=== PATIENT | female | born 1945 | race Caucasian/White ===

== ENCOUNTER 2017-07-05 11:19 | Outpatient (CLI) | payer OTHER, MEDICARE ==
[2017-07-05 14:41] LABS: ALT (SGPT) 16 U/L (8-55); AST (SGOT) 16 U/L (5-34); Alkaline Phosphatase 105 U/L (40-150); Anion Gap 14 mmol/L (10-20); BUN (Urea Nitrogen) 20 mg/dL (9.8-20.1); Bilirubin, Total 0.5 mg/dL (0.2-1.2); Calc. Creatinine Clearance 0 mL/min (70-130); Calcium 10.1 mg/dL (7.8-10.44); Carbon Dioxide 29 mmol/L (23-31); Chloride 100 mmol/L (98-107); Estimated GFR-MDRD 58; Globulin 3.1 g/dL (2.4-3.5); Protein, Total 7.5 g/dL (6.0-8.3)
== END 2017-07-05 11:20 | disposition home or self-care (01) ==
LOC: LABBT 11:19
PROVIDERS: ATTEND Internal Medicine Cardiovascular Disease
DX: Z01.812 Encounter for preprocedural laboratory examination (principal); R25.2 Cramp and spasm; R09.89 Other specified symptoms and signs involving the circulatory and respiratory systems
CPT/HCPCS: 80053

== ENCOUNTER 2017-07-06 05:59 | Day surgery (SDC) | payer OTHER, MEDICARE ==
[2017-07-05 12:03] VITALS: BMI 39.4
[2017-07-06] MEDS ORDERED: Heparin 1000 UNIT/NS 500ML(OR) 1,000 ML ONE (06:44)
--- NOTE | 2017-07-06 13:58 | DIS ---
INDICATION FOR ADMISSION: She was actually seen as an outpatient to undergo elective distal aortogra m with runoff to lower extremities as she complained of left lower extremity discomfort and pain. Pavel watters underwent an evaluation with ABIs in the office and was found to have severe stenosis of the left c ommon femoral artery. She was advised to undergo a distal aortogram with runoff and possible interve ntion. She was taken to the cardiac slab grinder. She underwent sterile procedure using a right femoral artery approach, #4 introducer sheath was placed in the right femoral artery using a 4-Serbian Contra catheter was advanced to the distal aorta and images indicated distal aortic plaque formation as well as severe left common iliac stenosis with an aneurysmal formation. Her other diagnoses included diabetes, hypertension, and chronic obstructive pulmonary disease. DISCHARGE DIAGNOSES: Diabetes, hypertension, and chronic obstructive pulmonary disease. DISCHARGE MEDICATIONS: Same as her admission medications, said she will hold her metformin for 24 ho urs and a chem-7 will be obtained. Her basic metabolic profile will be obtained prior to resuming is medication. Medicines incude bupropion, enalapril, levothyroxine and Crestor. She was on metformin 500 mg b.i.d. , metoprolol 50 mg daily, hydrochlorothiazide 25 mg a day, albuterol sulfate inhaler or nebulizer, Br eo Ellipta for inhalation, and aspirin 81 mg a day and also Imodium A-D. Her followup will be with me in the office in the next few days to a week where she will need to unde rgo some type of stress test in anticipation for probable aortoiliac bypass surgery or some other int ervention. She has not had a recent stress test that I am aware of. If she is to have one recent, t hen we will postpone that. She will also have a CT Surgery consultation with Dr. Rodrigo Marin and w e will also obtain a CT angiogram of the abdominal aorta, the pelvic area, as well as runoff to lower extremities. HOSPITAL COURSE: This is a very unfortunate 71-year-old female who was seen in the office and has be en complaining of left leg discomfort which was somewhat atypical. She did undergo evaluation by ANDREW s and arterial duplex evaluation and was found to have severe stenosis of the left common femoral art dany and proximal superficial femoral artery. She had significant abnormalities with ANDREW on the left side was 0.72. She complained of some cramping at night, but did not have typical claudication type symptoms, underwent evaluation and was found to have severe stenosis of the left common iliac with a gradient of 50-70 mmHg across the area and also had a poststenotic dilatation of the iliac which appe ar to be an aneurysmal formation. She did tolerate the procedure well without difficulties or compli cations. I have discussed her case with the CT surgeons, and she will need to undergo some type of i ntervention. We will further evaluate the distal aorta little bit closer as she does have significan t amount of plaque in the distal aorta extending from distal to the renal arteries down to the bifurc ation. There were no complications or difficulties encountered during her procedures and she has rem ained stable. Once she has hemostasis obtained and she is up and ambulating, she would be discharged home later aft er about 4 hours. ADDENDUM: This lady did undergo a stress test in July of this year. On 07/01/2017, she underwen t stress testing and was found to have no evidence of ischemia on stress test and she should be a tonya sonable candidate to proceed with a low risk for any acute cardiac events.
[2017-07-06] MEDS ORDERED: Iopamidol 370 76% 100 ML VIAL ONE (17:09)
== END 2017-07-06 12:38 | disposition home or self-care (01) ==
LOC: CCL 05:59
PROVIDERS: ATTEND Internal Medicine Cardiovascular Disease
DX: I70.202 Unspecified atherosclerosis of native arteries of extremities, left leg (principal); I70.0 Atherosclerosis of aorta; Q27.32 Arteriovenous malformation of vessel of lower limb; I10 Essential (primary) hypertension; E11.9 Type 2 diabetes mellitus without complications; J44.9 Chronic obstructive pulmonary disease, unspecified; E03.9 Hypothyroidism, unspecified; E78.5 Hyperlipidemia, unspecified; Z79.4 Long term (current) use of insulin; Z79.82 Long term (current) use of aspirin; Z79.899 Other long term (current) drug therapy
CPT/HCPCS: 36246; 75630; 75710; C1769; J1644

== ENCOUNTER 2017-07-08 08:49 | Outpatient (CLI) | payer OTHER, MEDICARE ==
[2017-07-08] MEDS ORDERED: Iopamidol 370 76% 100 ML VIAL ONE (11:32)
--- NOTE | 2017-07-08 11:37 | CT ---
CT ANGIOGRAM OF ABDOMINAL AORTA BILATERAL LOWER EXTREMITY RUNOFF: Date: 07/08/17 HISTORY: Recent cardiac catheterization demonstrating aneurysm. COMPARISON: None. TECHNIQUE: CT angiogram of the aorta and bilateral lower extremity runoff performed in the axial plane. Sagittal and coronal three-dimensional reformatted images are submitted for interpretation. FINDINGS: ABDOMEN CT: Chronic changes in the lung bases. Heart size is within normal limits. No pericardial effusion. Liver, spleen, pancreas, and adrenal glands have appropriate arterial phase enhancement. Symmetric en hancement of the kidneys. Bilaterally, no obstructive uropathy. Hypodensities in the right renal krissy ex are too small to characterize, but are statistically favored to be cysts. No gastrohepatic or retrocrural lymphadenopathy. There is a nonspecific peripancreatic/periportal lym ph node measuring 2.0 x 1.5 cm. No mesenteric mass, lymphadenopathy, free air, or free fluid. Limited evaluation of the alimentary canal due to lack of oral contrast. No evidence of bowel obstruc tion. Ileocecal junction is normal. Normal caliber appendix. Fecal material in a nondistended, nondil ated colon. Occasional diverticulosis. No evidence of diverticulitis. PELVIC CT: Uterus and adnexal structures are unremarkable. Urinary bladder is unremarkable. No pelvic mass, lymp hadenopathy, free air, or free fluid. There are no lytic or blastic lesions of the osseous structures. Scoliotic curvature with vacuum disc phenomenon is identified. CT ANGIOGRAM: The descending thoracic aorta and abdominal aorta have an overall normal caliber. No periaortic fat s tranding. There is evidence of atherosclerotic disease. The celiac artery origin, superior mesenteric artery origin, left and right renal arteries have appropriate enhancement and luminal diameter. Elaina tary left and right renal arteries. Inferior mesenteric artery is also unremarkable. Aortic bifurcati on is unremarkable. There is no evidence of significant aneurysmal dilatation of either common iliac artery. There is mild tortuosity of the left common iliac artery. Bilateral internal and external pebbles ac arteries are patent. Right lower extremity: Common femoral artery, profunda femoral artery, superficial femoral artery, popliteal artery, and art erial trifurcation have appropriate enhancement and luminal diameter. Three vessels supply the right lower extremity to the level of the ankle/foot. Left lower extremity: Common femoral artery, profunda femoral artery, superficial femoral artery, popliteal artery, and art erial trifurcation have appropriate enhancement and luminal diameter. Three vessel supply to the left ankle/foot. IMPRESSION: 1. No significant peripheral vascular disease. 2. No evidence of significant aneurysm in either iliac artery. There is mild tortuosity of the left common iliac artery. POS: ALICE
== END 2017-07-08 08:50 | disposition home or self-care (01) ==
LOC: CT 08:49
PROVIDERS: ATTEND Internal Medicine Cardiovascular Disease
DX: Z01.818 Encounter for other preprocedural examination (principal); I77.1 Stricture of artery; R25.2 Cramp and spasm; R09.89 Other specified symptoms and signs involving the circulatory and respiratory systems
CPT/HCPCS: 75635

== ENCOUNTER 2018-04-27 08:49 | Outpatient (CLI) | payer OTHER, MEDICARE ==
--- NOTE | 2018-04-27 11:13 | MMO ---
BILATERAL SCREENING MAMMOGRAMS: Date: 04/27/18 HISTORY: Annual screening mammography. This patient's mammogram was interpreted with the assistance of computer-aided detection. COMPARISON: 04/07/17, 03/07/15, 03/01/14, 01/19/13. FINDINGS: Scattered fibroglandular densities are seen in each breast. Stable intramammary lymph nodes are again seen in each breast with a few benign-appearing calcifications seen in each breast. No new dominant mass or suspicious grouping of microcalcifications are seen in either breast. IMPRESSION: BIRADS 2: Benign Finding(s) Routine annual mammographic screening is recommended. POS: ALICE
== END 2018-04-27 08:50 | disposition home or self-care (01) ==
LOC: SCSMAMMO 08:49
PROVIDERS: ATTEND Family Medicine
DX: Z12.31 Encounter for screening mammogram for malignant neoplasm of breast (principal)
CPT/HCPCS: 77067

== ENCOUNTER 2020-01-17 08:31 | Outpatient (CLI) | payer BC, MEDICARE ==
--- NOTE | 2020-01-17 10:14 | MRI ---
MRI BRAIN WITH AND WITHOUT IV CONTRAST: HISTORY: TIA. FINDINGS: Correlation is made with a CT of 12/27/2019. There are multiple foci of T2 prolongation in the periventricular white matter consistent with chroni c small-vessel ischemic disease. The ventricular size is appropriate and the basilar cisterns patent . No restricted diffusion is seen. No evidence of infarct, hemorrhage, mass, midline shift, or abnormal extraaxial fluid collections is seen. No abnormal post contrast enhancement is noted. The visualized paranasal sinuses and mastoid air cells are well aerated. IMPRESSION: Chronic changes. No evidence of acute intracranial process or mass. POS: AH
== END 2020-01-17 08:32 | disposition home or self-care (01) ==
LOC: SCSMRI 08:31
PROVIDERS: ATTEND Family Medicine
DX: G45.9 Transient cerebral ischemic attack, unspecified (principal)
CPT/HCPCS: 70553; 82565

== ENCOUNTER 2020-04-05 17:40 | Inpatient (IN) | payer BC, MEDICARE, OTHER ==
[~2020-04-05 17:40] MED LIST: Iopamidol-370 76% 500 ML 1 ML ONE
[2020-04-05] MEDS ORDERED: Rocuronium Bromide 10 MG/ML (10ML VIAL) ONE ×2 (18:19→18:33)
[2020-04-05] MEDS ORDERED: Succinylcholine Chloride 20 MG/ML 10 ml SYRINGE FS ONE (18:33)
--- NOTE | 2020-04-05 18:36 | CT ---
CT OF CERVICAL SPINE PERFORMED WITHOUT CONTRAST ENHANCEMENT: 04/05/20 HISTORY: Fell with neck pain. Vertebral bodies are normal in height. Moderate degenerative disc narrowing seen along the course of the spine from the C3-4 to the C7-T1 levels. Moderate degenerative facet changes are present. There is mild to moderate right foraminal narrowing at C4-5 with asymmetric facet changes. Bilateral foraminal narrowing which is mild on the left and moderate on the right at C5-6 and some mild to mode rate right sided foraminal narrowing at C6-7. There is no CT evidence of fracture. Small 6 to 7 mm pleural based nodular density seen in the left upper lobe. IMPRESSION: No CT evidence of fracture of the cervical spine. POS: OFF
--- NOTE | 2020-04-05 18:40 | CT ---
CT BRAIN WITHOUT CONTRAST: 04/05/20 HISTORY: Stroke alert. FINDINGS: There is a large acute right hemispheric intra-axial hematoma with surrounding vasogenic edema causin g a leftward midline shift of 6 mm. There is intraventricular hemorrhage. The bony calvarium appears intact. The visualized paranasal sinuses and mastoid air cells are well aerated. IMPRESSION: Acute intracranial hemorrhage with subfalcine herniation. Discussed over the telephone with ER physician, Dr. Brian Bravo at 6:28 p.m. POS: DONTE
--- NOTE | 2020-04-05 18:51 | CT ---
CT OF CHEST AND ABDOMEN AND PELVIS PERFORMED WITH INTRAVENOUS CONTRAST ENHANCEMENT: 04/05/20 HISTORY: Fall with bruising along left side. There are linear parenchymal changes in the left upper lobe in more of a paramediastinal location. Ch anges have more of an appearance of scar within the lingula. There is no pneumothorax identified. There is no evidence of rib fractures. The thoracic aorta is normal in size. No mediastinal hematoma. Coronary calcifications are present. CT OF ABDOMEN PERFORMED WITH CONTRAST ENHANCEMENT: The liver and spleen show no focal abnormalities. Pancreas and gallbladder regions are unremarkable. Right and left adrenal glands are normal. Hypodensity involving the right kidney has higher CT Hounsf ield unit numbers than typically seen for a cyst but I still feel is most likely a cyst. In reviewing a previous 09/03/16 examination a density was present on that study. It measures 15 mm on the current exam and a similar size on the prior study. No obstruction. No significant periaortic or mesenteric a denopathy. No signs for bowel wall injury. CT OF PELVIS PERFORMED WITH CONTRAST ENHANCEMENT: The patient has undergone a tubal ligation. No adenopathy, mass or free fluid. The appendix appears u nremarkable. No evidence of fracture of the bony pelvic ring. CT OF THORACIC SPINE: Marked arthritic change without any acute injury. CT OF THE LUMBAR SPINE: Severe arthritic change also without evidence of acute injury. Bruising is seen along the left side o f the abdomen in the left upper quadrant. IMPRESSION: No evidence of solid organ injury. No acute findings other than bruising along the left side of the a bdomen. Incidental findings as noted above. Findings of this examination and the cervical spine study were telephoned to Dr. Bravo at 1835 hour s. POS: OFF
[2020-04-05] MEDS ORDERED: niCARdipine 20MG In NaCl 20 MG/200 ML BAG ONE (18:54)
[2020-04-05 18:56] LABS: #Lymphocytes 1.3 thou/uL (1.20-3.40); #Monocytes 0.8 thou/uL (0.11-0.59); #Neutrophils 12.6 thou/uL (1.40-6.50); %Basophils 0.1 % (0.0-1.0); %Eosinophils 0.1 % (0.0-10.0); %Monocytes 5.2 % (0.0-10.0); %Neutrophils 85.6 % (42.0-75.0); Hemoglobin 14.7 g/dL (12.0-16.0); Mean Corpuscular HGB CONC 33.6 g/dL (32.0-36.0); Mean Corpuscular Volume 92.2 fL (78.0-98.0); Mean Platelet Volume 8.1 fL (7.4-10.4); Platelet Count 290 thou/uL (130-400); RBC Distribution Width 12.5 % (11.5-14.5); Red Blood Cell (RBC) Count 4.75 mill/uL (4.20-5.40); White Blood Cell (WBC) Count 14.7 thou/uL (4.8-10.8)
[2020-04-05] MEDS ORDERED: Fentanyl 100 MCG/2 ML VIAL ONE (18:56)
[2020-04-05] MEDS ORDERED: fentaNYL Citrate/PF 2,000 MCG in Sodium Chloride 0.9% 60 ML IV SCH (18:59)
[2020-04-05 19:00] LABS: Actual Bicarbonate (HCO3a) 20.9 mEq/L (22-28); Analyzer IN Cardio ER; Base Excess (BEa) -3.5 mEq/L (-2.0 to +3.0); CO2 Tension 36.2 mmHg (35.0-45.0); Calcium, Ionized (arterial) 1.19 mmol/L (1.12-1.30); Carboxyhemoglobin (COHb) 0.8 gm% (0.0-3.0); Hemoglobin (Hb) 15.5 g/dL (12.0-16.0); O2 Tension (PaO2), arterial 106.8 mmHg (> 70.0); Potassium - ABG Lab 3.46 mmol/L (3.70-5.30); pH, Arterial 7.38 (7.35-7.45)
[2020-04-05 19:03] LABS: PTT 29.2 sec (22.9-36.1)
[2020-04-05 19:09] LABS: ALT (SGPT) 15 U/L (8-55); AST (SGOT) 34 U/L (5-34); Albumin 4.2 g/dL (3.4-4.8); Alkaline Phosphatase 86 U/L (40-110); Anion Gap 18 mmol/L (10-20); BUN (Urea Nitrogen) 16 mg/dL (9.8-20.1); Bilirubin, Total 0.9 mg/dL (0.2-1.2); Calc. Creatinine Clearance 0 mL/min (70-130); Calcium 9.4 mg/dL (7.8-10.44); Carbon Dioxide 22 mmol/L (23-31); Chloride 102 mmol/L (98-107); Estimated GFR-MDRD 66; Globulin 2.7 g/dL (2.4-3.5); Glucose 184 mg/dL (83-110); Magnesium 1.7 mg/dL (1.6-2.6); Potassium 3.5 mmol/L (3.5-5.1); Protein, Total 6.9 g/dL (6.0-8.3); Sodium 138 mmol/L (136-145)
--- NOTE | 2020-04-05 19:27 | RAD ---
PORTABLE CHEST ONE VIEW: 04/05/20 at 6:57 p.m. HISTORY: Respiratory failure. FINDINGS/IMPRESSION: Comparison made with exam of 12/27/19. There is an endotracheal tube with tip about 2.5 cm above the level of the zeinab. A nasogastric tube is seen which can be traced into the stomach with tip excluded from the film. The heart size is prom inent but stable. The aorta is tortuous. No lobar consolidation, pneumothoraces, or large effusions a re seen. There is scarring in the left lung base. There is scoliosis of the spine. POS: MZA
--- NOTE | 2020-04-05 19:28 | RAD ---
PORTABLE CHEST ONE VIEW: 04/04/20 at 7:05 p.m. HISTORY: Reposition of ET tube. FINDINGS/IMPRESSION: There has been interval repositioning of the endotracheal tube which is now just below the level of t he clavicular heads. The remainder of the exam is otherwise stable since earlier exam of 6:57 p.m. fr om the same date. POS: DONTE
[2020-04-05] MEDS ORDERED: Ondansetron PF 4 MG/2 ML Vial IVP PRN (19:30)
[2020-04-05 19:50] LABS: Bacteria/HPF None Seen HPF (None Seen); Bilirubin Negative (Negative); Blood, Urine 3+ (Negative); Clarity Clear (Clear); Glucose, Urine (Dipstick) Normal (Negative); Ketone, Urine Negative (Negative); Leukocyte Negative Leu/uL (Negative); Nitrite Negative (Negative); Protein, Urine (Dipstick) 100 mg/dL (Neg-Trace); RBC/HPF 0-3 HPF (0-3); Specific Gravity, Urine 1.035 (1.002-1.036); Squamous Epithelial 0-3 HPF (0-3); Urobilinogen Normal mg/dL (Less than 2); WBC/HPF 0-3 HPF (0-3)
[2020-04-05] MEDS ORDERED: Piperacillin/Tazobactam 4.5 GM VIAL ONE (20:56)
[2020-04-05] MEDS ORDERED: Vancomycin 1 GM/200 ML BAG ONE (20:56)
[2020-04-05] MEDS ORDERED: Acetaminophen 650 MG Suppository ONE (21:02)
--- NOTE | 2020-04-05 21:16 | PDOC.EVN ---
Event Note - Event Note Event Note: [id number] consult
[2020-04-05] MEDS ORDERED: Fentanyl BOLUS 250 ML IVPB PRN (22:26)
[2020-04-05] MEDS ORDERED: Propofol BOLUS 1,000 MG/100 ML VIAL IV PRN (22:26)
[2020-04-05] MEDS ORDERED: DISCONTINUE PREVIOUS NARCOTIC PAIN MEDICATIONS AND BENZODIAZEPINES FS SCH (22:26)
[2020-04-05] MEDS ORDERED: Lorazepam 2 MG/ML VIAL SLOW IVP PRN (22:26)
[2020-04-05] MEDS: Sodium Chloride 0.9% 1,000 ML IV SCH (23:35)
--- NOTE | 2020-04-06 02:06 | CON ---
DATE OF CONSULTATION: 04/05/2020 REASON FOR CONSULTATION: Medical management in a patient with intracranial bleed. REQUESTING SERVICE: Neurosurgery. CHIEF COMPLAINT: Unresponsiveness. HISTORY OF PRESENT ILLNESS: Ms. Pate is a 74-year-old female, with unknown past medical history/possible cardiac history, was brought to the emergency room after she was found on the floor, unresponsive after ?fall between the bed and the end of the table, end of the table fell on the patient, patient bruised the left abdomen. Patient was only responsive to painful stimuli, Narcan was given. Workup in the emergency room, patient was intubated. Patient was found not moving her left side of the body, CT of the brain showed acute intracranial hemorrhage with subfalcine herniation, patient is being admitted to Neurologic Surgical service. No further history can be obtained at this time. PAST MEDICAL HISTORY: Possible cardiac history, unable to verify. PAST SURGICAL HISTORY: Unknown. FAMILY HISTORY: Unknown. HOME MEDICATIONS: Unknown. ALLERGIES: UNKNOWN. SOCIAL HISTORY: Unknown. REVIEW OF SYSTEMS: Unable to obtain as patient is currently intubated and sedated. PHYSICAL EXAMINATION: GENERAL: Patient is intubated and sedated. VITAL SIGNS: On presentation, blood pressure 203/125, started on Cardene drip. Then, the blood pressure dropped to systolic 100. Cardene drip was off. Pulse is 91, temperature 100.9, and respiratory rate is 20. HEAD AND NECK: Normocephalic. NECK: Supple. CHEST: Fair bilateral air entry. HEART: S1, S2. Regular. ABDOMEN: Soft. Bowel sounds present. NEUROLOGIC: Intubated and sedated. Unable to assess. PSYCH: Intubated and sedated. Unable to assess. EXTREMITIES: No clubbing or cyanosis. LABORATORIES: CT of the brain as mentioned above in history of present illness. Troponin is elevated at 3.4. ASSESSMENT: 1. Acute intracranial bleed. 2. Acute respiratory failure. 3. Elevated troponin. Patient has a possible history of cardiac disease. 4. Unresponsiveness. PLAN: 1. Patient is being admitted to the ICU. 2. Continue full ventilator support. 3. Monitor blood pressure. Titrate to systolic less than 140. 4. Station Usher consulted for critical care management. 5. Further management as per Neurosurgery. 6. Reconcile home medications. 7. DVT prophylaxis if appropriate. 8. Overall prognosis is poor. Patient's condition is critical. Thank you for consulting us. Job ID: [id number]
--- NOTE | 2020-04-06 03:39 | CON ---
DATE OF CONSULTATION: CHIEF COMPLAINT: Fall. HISTORY OF PRESENT ILLNESS: Ms. Pate is a 74-year-old female, who fell between the bed and end table about an hour ago by her . She has a history of a TIA back in December with no weakness. Currently taking aspirin 325 mg and no blood thinners. Brain CT shows a right acute intracranial hemorrhage with left midline shift of [address] showed no evidence of fractures. GCS prior to intubation was 10. REVIEW OF SYSTEMS: Intubated PAST MEDICAL HISTORY: Hypertension, Diabetes PAST SURGICAL HISTORY: Unable to obtain. SOCIAL HISTORY: Former smoker. MEDICATIONS: Wellbutrin 150 mg, Enalapril 20 mg, Levothyroxine 50 mcg, Crestor 10 mg, Metformin 500 mg, Metoprol 50 mg, Aspirin 325 mg, Akbar and Albuterol I, Hydralazine 25 mg, Vitamin D 5000 IU ALLERGIES: NO KNOWN ALLERGIES (unconfirmed) FAMILY HISTORY: Father , Heart Dz. Mother, , Heart Dz PHYSICAL EXAMINATION: VITAL SIGNS: Blood pressure 118/74, pulse 100, respiratory rate 20, and temperature 100. NEUROLOGIC: Pupils equal, round, and reactive to light, left-sided ido- neglect. GCS 11: Spontaneous eye opening is 4, Verbal intubated (NT) 1, Motor: obeys commands 6. LABORATORY DATA: White blood cells 14.7, platelet count 290. Sodium 138. PT 13, INR 1.0, and PTT 29.2. IMAGING: CT of the brain, acute intracranial hemorrhage with a left midline shift of 6 mm. PLAN: Stop aspirin. Support airway. Keep SBP less than 140. Start Keppra. Repeat CT of the brain this tomorrow morning. If scan shows improvement or no change, we will transfer care to Medicine Service. Supportive care. No intracranial surgery at this time. We will have her follow up in 2 to 3 weeks in our clinic. (50 minutes) Job ID: [id number] MTDD
[2020-04-06 06:38] LABS: INR-International Normal Ratio 1.1; Prothrombin Time 14.1 sec (12.0-14.7)
[2020-04-06 06:39] LABS: PTT 29.4 sec (22.9-36.1)
[2020-04-06 06:50] LABS: Anion Gap 16 mmol/L (10-20); BUN (Urea Nitrogen) 21 mg/dL (9.8-20.1); Band 5 % (5-11); Calc. Creatinine Clearance 79 mL/min (70-130); Calcium 8.9 mg/dL (7.8-10.44); Carbon Dioxide 19 mmol/L (23-31); Chloride 107 mmol/L (98-107); Eosinophils 1 % (0-10); Estimated GFR-MDRD 54; Glucose 178 mg/dL (83-110); Hemoglobin 13.2 g/dL (12.0-16.0); Lymphocytes 15 % (21-51); MDiff Complete? YES; Mean Corpuscular Hemoglobin 30.3 pg (27.0-31.0); Mean Platelet Volume 7.9 fL (7.4-10.4); Monocytes 9 % (0-10); Neutrophil 70 % (42-75); Platelet Count 288 thou/uL (130-400); Platelet Morphology Comment Appears Adequate; Potassium 3.4 mmol/L (3.5-5.1); RBC Distribution Width 12.7 % (11.5-14.5); RBC Morphology Normal; Red Blood Cell (RBC) Count 4.34 mill/uL (4.20-5.40); Sodium 139 mmol/L (136-145); White Blood Cell (WBC) Count 12.5 thou/uL (4.8-10.8)
--- NOTE | 2020-04-06 07:40 | PRG ---
DATE OF SERVICE: 04/06/2020 : I personally interviewed and examined the patient, agreed with documentation of Seferino Dinh PA-C dated 04/05/2020. Briefly, Mercedes Pate is a 74-year-old woman found down by her family yesterday and brought to the emergency department. CT examination of the brain revealed intracerebral hemorrhage, which looks lobar. There is some mass effect from the hemorrhage. In the emergency department, with a GCS of 10 to 11, she was intubated. She has been placed in the ICU overnight and I am seeing her this morning. A repeat CT examination of the brain was done. Blood pressures have been well controlled in the 90s to 100s. The maximum temperature I see recorded overnight is 99.5 degrees Fahrenheit. On examination, Ms. Pate is intubated. She opens her eyes as I entered the room even before I ask her to do so. She follows commands quite well on the right side of her body. On the left side, she can appreciate deep pressure. There is some withdrawal in the left leg. There is no motion of the left arm. She nods her head appropriately to some questions. Her hemoglobin is 14.7. The sodium was 138 yesterday, but has not been obtained this morning. pCO2 was [address] examination of the brain and compared today scan to yesterday scan. When I measure it, I see that the midline shift is slightly reduced. I do not believe the hemorrhage volume is any different today from yesterday. There may be some hemorrhage that has circulated in the CSF. There is a tiny amount in the sulcus on the contralateral hemisphere and some intraventricular hemorrhage, but there is no ventriculomegaly. I do not believe, Ms. Pate had any increased bleeding. In fact, by the time she arrived at the emergency department there was already vasogenic edema around the clot. This suggests that she was down for a day or more before being found. This edema does not happen acutely and therefore, I think we are at least 48, if not 72 hours or beyond since the hemorrhage happened. As such, I do not think neurosurgical intervention will be warranted. I think we can manage her medically from here. This spontaneous intracerebral hemorrhage, per management protocols , can be transferred to medical service as primary, but we will continue to follow this case due to the size of the hemorrhage. Ms. Pate will benefit eventually from speech, occupational, physical therapy and inpatient rehabilitation. It may come to the point in the next few days that the family will have to decide on trach and PEG, but hopefully she can be extubated. Careful management of her IV fluid to avoid hyponatremia, and a constant and vigilant watch for this will help avoid any worsening of the edema. Job ID: [id number] MTDD
[2020-04-06 08:01] LABS: Actual Bicarbonate (HCO3a) 20.9 mEq/L (22-28); Base Excess (BEa) -1.7 mEq/L (-2.0 to +3.0); CO2 Tension 29.7 mmHg (35.0-45.0); Calcium, Ionized (arterial) 1.13 mmol/L (1.12-1.30); Carboxyhemoglobin (COHb) 0.5 gm% (0.0-3.0); Hemoglobin (Hb) 13.8 g/dL (12.0-16.0); O2 Tension (PaO2), arterial 89.7 mmHg (> 70.0); Potassium - ABG Lab 3.29 mmol/L (3.70-5.30); pH, Arterial 7.47 (7.35-7.45)
[2020-04-06 08:02] LABS: ALV-art Gradient 194.025 (0-20); Puncture Site RR
[2020-04-06] MEDS: Sodium Chloride 0.9% 1,000 ML IV SCH ×2 (09:27→14:31)
--- NOTE | 2020-04-06 09:56 | CT ---
PRELIMINARY REPORT/[facility]/EMERGENCY AFTER HOURS PROCEDURE Receipt of this report by the clinical staff was confirmed with Ely Barrera RN by Nilam Wiley on Apr 06, 2020 04:49:00 CDT. Addendum electronically signed by Suzette Wiley on April 06, 2020 4:49:10 AM CDT EXAM: CT Head Without Intravenous Contrast. CLINICAL HISTORY: F/u IVH TECHNIQUE: Axial computed tomography images of the head/brain without intravenous contrast. COMPARISON: CT\LA\SR - CT BRAIN WO CON - 04/05/2020 06:12 PM CDT FINDINGS: BRAIN: There is a large intraparenchymal hematoma in the right frontal region measuring 5 x 0.7 x 4.1 x 7 cm with a large area of vasogenic edema, enlarged compared to prior examination. There is midline shift to the left side for about 7 mm, increased since the last examination. There i s bilateral intraventricular hemorrhage, increased since the last examination. Subarachnoid hemorrhag e in the right frontal and the left parietal region, new since the last examination. VENTRICLES: No hydrocephalus. ORBITS: The orbits are unremarkable. SINUSES AND MASTOIDS: The paranasal sinuses and mastoid air cells are clear. SOFT TISSUES: No significant facial or scalp soft tissue swelling evident. No radiopaque foreign body is seen. BONES: No acute skull fracture. IMPRESSION: 1. There is a large intraparenchymal hematoma in the right frontal region measuring 5 x 0.7 x 4.1 x 7 cm with a large area of vasogenic edema, enlarged compared to prior examination. 2. There is midline shift to the left side for about 7 mm, increased since the last examination. 3. There is bilateral intraventricular hemorrhage, increased since the last examination. 4. Subarachnoid hemorrhage in the right frontal and the left parietal region, new since the last exam ination. ELECTRONICALLY SIGNED BY: Floyd Celis MD Apr 06, 2020 4:32:41 AM CDT FINAL REPORT CT BRAIN WITHOUT CONTRAST: I agree with the preliminary report given by Dr. Floyd Celis of [facility]. POS: OFF
[2020-04-06 11:46] LABS: SARS-CoV-2 MS2 Positive; SARS-CoV-2 N Gene Negative; SARS-CoV-2 S Gene Negative; SARS-CoV-2 by NAA Not Detected (NotDetected); SARS-CoV-2 orf1ab Negative
--- NOTE | 2020-04-06 14:04 | PDOC.HOSPP ---
- Subjective Encounter Date: 04/06/20 Encounter Time: 13:05 Subjective: f/u for intracerebral hemorrhage of R frontal region with midline shift/ intraventricular hemorrhage. [facility] and moving R hand/LE per nursing. - Objective Vital Signs & Weight: Vital Signs (12 hours) Temp Pulse Resp BP Pulse Ox 04/06/20 13:07 105 H 116/64 04/06/20 12:00 99.6 F 23 H 04/06/20 11:05 101 H 134/55 L 04/06/20 10:00 100.0 F H 20 04/06/20 08:00 99.1 F 20 96 04/06/20 07:43 98 103/67 04/06/20 06:00 20 04/06/20 04:00 99.5 F 20 04/06/20 02:23 88 84/54 L Weight Weight 219 lb 5.759 oz Most Recent Monitor Data Heart Rate from ECG 105 NIBP 116/64 NIBP BP-Mean 81 Respiration from ECG 20 SpO2 96 I&O: 04/05/20 04/06/20 04/07/20 06:59 06:59 06:59 Intake Total 450 110 Output Total 1210 200 Balance -760 -90 Result Diagrams: 04/06/20 06:24 04/06/20 06:24 Additional Labs: Microbiology 04/05/20 19:38 Urine ac catheter Urine Culture - Preliminary NO GROWTH AT 12 HOURS 04/05/20 18:34 Venous blood - Right Hand Blood Culture - Preliminary Specimen has been received and culture in progress. No Growth to date. 04/05/20 18:33 Venous blood - Left Hand Blood Culture - Preliminary Specimen has been received and culture in progress. No Growth to date. Laboratory Tests 10/23/19 04/05/20 04/05/20 11:07 18:34 18:34 WBC Neutrophils % Neutrophils % (Manual) Potassium 3.5 Troponin I 3.403 H* TSH 3rd Generation 0.2347 L COVID-19 PCR 04/05/20 04/05/20 04/05/20 18:34 18:34 19:54 WBC 14.7 H Neutrophils % 85.6 H Neutrophils % (Manual) Potassium Troponin I TSH 3rd Generation 0.1456 L COVID-19 PCR Not Detected 04/06/20 06:24 WBC Neutrophils % Neutrophils % (Manual) 70 Potassium Troponin I TSH 3rd Generation COVID-19 PCR Radiology Reviewed by me: Yes (CT brain - R frontal intracerebral hemorrhage/ midline shift/intravent hemor) EKG Reviewed by me: Yes (Tele - SR) Hospitalist ROS - Medication Medications: Active Medications Generic Name Dose Route Start Last Admin Trade Name Jarrellq PRN Reason Stop Dose Admin Sodium Chloride 1,000 mls @ 75 mls/hr 04/05/20 19:30 04/06/20 09:27 Normal Saline 0.9% IV Not Given .[id number] ANUSHKA Levetiracetam 500 mg/ Device 100 mls @ 200 mls/hr 04/05/20 21:00 04/06/20 09: 27 IVPB 100 mls BID ANUSHKA Administration - Exam General - other findings: sed[facility] Eye: PERRL, anicteric sclera ENT: normocephalic atraumatic, no oropharyngeal lesions ENT - other findings: ETT in place Neck: supple, symmetric, no JVD, no thyromegaly Heart: RRR, no murmur, no gallops, no rubs, normal peripheral pulses Heart - other findings: S1, S2 Respiratory: CTAB, no wheezes, no rales, no ronchi Gastrointestinal: soft, non-tender, non-distended, normal bowel sounds, no palpable masses Extremities: no cyanosis, no clubbing, no edema Skin: normal turgor, no lesions Neurological - other findings: moves R hand/BLE's, non-verbal, opens eyes briefly Psychiatric: somnolent, lethargic Hosp A/P (1) Intracerebral hemorrhage Code(s): I61.9 - NONTRAUMATIC INTRACEREBRAL HEMORRHAGE, UNSPECIFIED Status: Acute Qualifiers: Intracerebral hemorrhage etiology: nontraumatic Laterality: right Plan: continue fluid/med mgmt per Neurosurgery recommendations, serial Na+ monitoring (2) Acute respiratory failure with hypoxia Code(s): J96.01 - ACUTE RESPIRATORY FAILURE WITH HYPOXIA Status: Acute Plan: Continue [facility] ventilation, serial ABG's, PCXR, ? weaning vs need for trach (3) Acute metabolic encephalopathy Code(s): G93.41 - METABOLIC ENCEPHALOPATHY Status: Acute Plan: Secondary to #1 (4) NSTEMI (non-ST elevated myocardial infarction) Code(s): I21.4 - NON-ST ELEVATION (NSTEMI) MYOCARDIAL INFARCTION Status: Acute Plan: Likely due to #1 and demand state, no acute intervention currently, Cardiology consulted, no anticoagulation given ICH (5) CKD (chronic kidney disease), stage III Code(s): N18.3 - CHRONIC KIDNEY DISEASE, STAGE 3 (MODERATE) Status: Chronic Plan: Avoid nephrotoxic meds and limit contrast exposure - Plan mental health social worker, respiratory therapy, DVT proph w/SCDs Continue critical support Mech ventilation and ? ability to wean Continue IVF NS BP mgmt General stroke protocol AM lab: BMP, CBC, PT/PTT
[2020-04-06] MEDS: Acetaminophen 325 MG TAB PO PRN (14:16)
--- NOTE | 2020-04-06 15:36 | CON ---
DATE OF CONSULTATION: 04/06/2020 HISTORY OF PRESENT ILLNESS: Ms. Pate is a 74-year-old female. She was apparently found down at home. She is found to have a brain bleed with ventricular extension. She subsequently has been admitted. History is otherwise unknown. PAST MEDICAL HISTORY: History of hypertension, diabetes. SOCIAL HISTORY: Former smoker. MEDICATIONS: Prior to admission include; 1. Wellbutrin. 2. Enalapril. 3. Synthroid. 4. Crestor. 5. Metformin. 6. Metoprolol. 7. Aspirin. 8. She has inhalers. 9. Hydralazine. ALLERGIES: SHE HAS NO REPORTED DRUG ALLERGIES. FAMILY HISTORY: Positive for vascular disease. REVIEW OF SYSTEMS: Not obtainable. PHYSICAL EXAMINATION: VITAL SIGNS: Blood pressure 131/72, heart rate is 96, FiO2 is at 40%, respiratory rate is 20. HEAD AND NECK: Remarkable for equal pupils. Sclerae are anicteric. She has no cervical lymph nodes. LUNGS: Clear. HEART: Regular rhythm. ABDOMEN: Soft. EXTREMITIES: Without edema. LABORATORY DATA: CT of her head showed a large intra-axial right hemispheric hematoma with a leftward shift and subfalcine herniation. ASSESSMENT AND PLAN: No surgery is planned. Her prognosis is quite poor. She is a DNR apparently per discussion with the . Critical care time 30 min. Job ID: [id number] [facility]OSPITALDavid
--- NOTE | 2020-04-06 17:04 | CON ---
DATE OF CONSULTATION: 04/06/2020 INDICATIONS FOR CONSULTATION: An unfortunate 74-year-old female who suffered a large intracerebral hemorrhage. We were asked to see her due to some elevation of the cardiac enzymes with possible [id number]-[id number] elevation myocardial infarction or due to the acute neurological event, which could cause the cardiac enzymes increased. Her EKG does not show any acute changes. She does have some nonspecific ST-segment changes, but no ST-segment elevation. She does have some nonspecific ST-segment changes, which are rather diffuse, which again may be neurologic in nature. At this time, she is on the ventilator. She is somewhat, I believe, arousable. She had a repeat CT scan this morning, which showed that the hemorrhage had increased slightly. She has been seen by Dr. Kyle from Neurology. She actually had been found down at home by the family. According to Dr. Kyle's note, he does not think there has been any significant increase in the bleeding. There have been some edema around the area. I did see this lady back in, I believe, 2016, back in July, at which time she had undergone a distal aortogram, was looking at the lower extremities. It was felt that she had some peripheral vascular disease. I do not think she has had any intervention since that time. It did not appear to be critical on repeat evaluation. She does have a history of hypertension and diabetes and also COPD. ALLERGIES: NONE. MEDICATIONS: Prior to admission, include: 1. Aspirin. 2. Albuterol inhaler. 3. Crestor. 4. Metoprolol. 5. Enalapril. 6. Bupropion. 7. Levothyroxine. 8. Breo Ellipta inhaler. 9. Metformin. 10. She also was on, I believe, hrpn-mzh-yjzzqip p.r.n. medications, such as vinegar, vitamin D, fiber gummy. 11. She also was taking hydralazine 25 mg 3 times a day. REVIEW OF SYSTEMS: Not obtainable. Please refer to the notes dictated in the chart. Someone has spoken to the family. There is no family available at this time. PHYSICAL EXAMINATION: GENERAL: An elderly female. VITAL SIGNS: Blood pressure is 116/64, heart rate is 106 and shows a sinus rhythm, O2 saturation is 96%, and respirations are 20. HEENT: Shows the head to be normocephalic and atraumatic. Carotid pulses are present. I cannot hear any significant bruits. CHEST: Actually is clear to auscultation. There were no rales, rhonchi, or wheezing noted. CARDIOVASCULAR: A mild tachycardia, but regular rate and rhythm. I do not hear any gross murmurs. ABDOMEN: Obesity with positive bowel sounds. EXTREMITIES: No clubbing, cyanosis, or edema. She has no withdrawal of pain on the left side. She does have some withdrawal pain on the right side in the lower extremity. SKIN: Warm and dry at this time. LABORATORY DATA: WBC of 12.5, hemoglobin 13.2, hematocrit 39.9, and platelet count was 288,000. Her sodium is 139, potassium 3.4, BUN was 21 with a creatinine 1.01, and blood sugar was 178. Her cardiac enzymes yesterday evening, this is the only one that had been obtained, showed a CPK MB of 39 with a troponin-I of 3.4. EKG shows a sinus rhythm with nonspecific ST-segment changes. CT scan of the brain repeated this morning, results indicate a large intraparenchymal hematoma in the right frontal region with a midline shift to the left of about 7 mm. She did have bilateral intraventricular hemorrhage and some subarachnoid hemorrhage in the right frontal and left parietal regions. IMPRESSION: 1. An elderly female who has had no previous history of coronary artery disease that I can determine, but does have risk factors, who has now developed an intracerebral hemorrhage. There is a very little from a cardiac standpoint that we can perform at this time. She is not a candidate for any type of anticoagulation obviously. I will continue to monitor her very carefully, watch her blood pressure and heart rate, can certainly keep the heart rate under relatively good control with beta blockers perhaps if she is able to tolerate this from a blood pressure standpoint. She is on labetalol as needed, but we could certainly start a low dose of metoprolol to keep the heart rate and blood pressure under reasonable control. Her blood pressure is not elevated at this time. We will be more than happy to continue to follow the patient with you, but from a cardiac standpoint at this time, there is very little that we can offer. We certainly could obtain perhaps an echocardiogram for evaluation of left ventricular systolic function as this may give some insight into her future prognosis. Should she have severe cardiomyopathy or we have to treat medically if she has appreciable left ventricular hypertrophy. 2. History of some peripheral vascular disease, but is not severe. She has been doing relatively stable. 3. History of diabetes. This will be dealt with by the primary care service. 4. Hypercholesterolemia, I would continue her on statin medications if she is able to take medications through the NG tube. Most likely, she will need to undergo a percutaneous endoscopic gastrostomy and trach in the near future depending on the wishes of the family and how the patient progresses. Job ID: [id number]
[2020-04-06] MEDS: Propofol 1,000 MG/100 ML VIAL IV PRN (17:23)
[2020-04-06] MEDS: Labetalol HCl 100 MG/20 ML VIAL SLOW IVP PRN ×2 (21:04→23:38)
[2020-04-07] MEDS: Labetalol HCl 100 MG/20 ML VIAL SLOW IVP PRN ×5 (01:53→23:11)
[2020-04-07 03:37] LABS: Band 8 % (5-11); Hemoglobin 12.6 g/dL (12.0-16.0); Lymphocytes 13 % (21-51); MDiff Complete? YES; Mean Corpuscular HGB CONC 32.2 g/dL (32.0-36.0); Mean Corpuscular Hemoglobin 30.1 pg (27.0-31.0); Mean Corpuscular Volume 93.4 fL (78.0-98.0); Mean Platelet Volume 7.9 fL (7.4-10.4); Monocytes 1 % (0-10); Neutrophil 77 % (42-75); Platelet Count 211 thou/uL (130-400); Platelet Morphology Comment Appears Adequate; RBC Distribution Width 12.6 % (11.5-14.5); Red Blood Cell (RBC) Count 4.19 mill/uL (4.20-5.40); White Blood Cell (WBC) Count 11.4 thou/uL (4.8-10.8)
[2020-04-07 03:39] LABS: Anion Gap 16 mmol/L (10-20); BUN (Urea Nitrogen) 19 mg/dL (9.8-20.1); Calc. Creatinine Clearance 96 mL/min (70-130); Calcium 8.5 mg/dL (7.8-10.44); Carbon Dioxide 21 mmol/L (23-31); Chloride 108 mmol/L (98-107); Estimated GFR-MDRD 68; Glucose 166 mg/dL (83-110); Potassium 3.3 mmol/L (3.5-5.1); Sodium 142 mmol/L (136-145)
[2020-04-07] MEDS: Sodium Chloride 0.9% 1,000 ML IV SCH ×2 (04:13→15:27)
[2020-04-07 04:22] LABS: INR-International Normal Ratio 1.1; PTT 32.5 sec (22.9-36.1); Prothrombin Time 14.6 sec (12.0-14.7)
--- NOTE | 2020-04-07 07:46 | PRG ---
DATE OF SERVICE: 04/07/2020 I saw Mrecedes Pate in the ICU this morning. She is starting her 3rd hospital day with us. She came in after being found down and had an intracerebral hemorrhage noted on her admission CT scan with vasogenic edema already present before her admission, suggesting an older hemorrhage, then the day of admission. Since being here, she is continued to follow commands. Overnight yesterday, propofol was started to ease her the increased tolerance of the ventilatory support. Yesterday, her maximum temperature was 101.3 degrees Fahrenheit. Blood pressures have been between the 120s and 140s. On examination with propofol running, Ms. Pate is a little bit slower to follow commands than yesterday, but still moves her right hand and right foot to command. She withdraws the left foot. I am not getting her to move the left arm. Sodium is 142, which is good. Her white blood cell count is 11.4 and her hemoglobin is 12.6. Ms. Pate would benefit from physical, speech, and occupational therapy as well as inpatient rehabilitation. We will continue to follow. We will hope that her sodium stays in a good range. I do not see any change between the admission CT scan and a followup CT scan with regard to the size of the parenchymal component of the hemorrhage. Some of the intraventricular hemorrhage present on the first scan disseminated through the CSF space, but I do not suspect any bleeding between the two scans. Eventually, the family will help us decide whether trach and PEG are in her best interest. Hopefully, she is alert enough in the coming day or two to not require endotracheal intubation. Job ID: [id number]
[2020-04-07] MEDS ORDERED: Electrolyte Replacement Protoc 1 EACH EACH FS SCH (08:03)
[2020-04-07] MEDS ORDERED: Sodium Chloride 0.9% (PF) 10 ML VIAL FS PRN (08:09)
[2020-04-07] MEDS ORDERED: Potassium Chloride 40 MEQ in Sodium Chloride 0.9% 250 ML 250 ML IVPB SCH (08:15)
--- NOTE | 2020-04-07 08:18 | PRG ---
DATE OF SERVICE: 04/07/2020 35 minutes of critical care time. SUBJECTIVE: Ms. Pate is a 74-year-old female, who is currently in the hospital for treatment of a large intraventricular hemorrhage. I have known her for probably 15 years in managing her COPD through the office. I can get her to follow some simple commands on the right side, I can get her to do anything on the left, and I can get her to open her eyes spontaneously. OBJECTIVE: VITAL SIGNS: Temperature is 100.9 with a T-max of 101.3 yesterday, pulse 102, blood pressure 162/82. 24-hour intake 1854, output 1126. HEENT: Otherwise, unremarkable. NECK: No JVD. LUNGS: Coarse breath sounds. CARDIOVASCULAR: S1 and S2, regular. ABDOMEN: Soft, obese, nontender, and nondistended. EXTREMITIES: No clubbing, cyanosis, or edema. LABORATORY DATA: White blood cell count 11.4, hematocrit 39.1, and platelet count 211. INR 1.1, PTT 32.5. ABG has not been done today, but looked okay yesterday. Sodium 142, potassium 3.3, chloride 108, CO2 of 21, BUN 19, creatinine 0.8, glucose 166. ASSESSMENT: 1. Large intraventricular hemorrhage. 2. Underlying chronic obstructive pulmonary disease. 3. Hypertension. 4. Elevated cardiac enzymes. PLAN: We will need to meet with family to see what their preferences will be going forward. I will get her potassium replaced. We will start her on enteral tube feeds. Job ID: [id number]
[2020-04-07] MEDS: Pantoprazole 40 MG VIAL IVP SCH (09:26)
[2020-04-07] MEDS ORDERED: Metoprolol Tartrate 50 MG TAB PER TUBE SCH (09:30)
[2020-04-07 09:57] LABS: Troponin I 1.029 ng/mL (< 0.028)
[2020-04-07] MEDS: hydrALAZINE 20 MG/ML VIAL SLOW IVP PRN (10:34)
[2020-04-07] MEDS: Propofol 1,000 MG/100 ML VIAL IV PRN (15:22)
--- NOTE | 2020-04-07 17:16 | PDOC.HOSPP ---
- Subjective Encounter Date: 04/07/20 Encounter Time: 16:50 Subjective: f/u for intracerebral hemorrhage and resp failure [facility] BP labile per nursing. Moving her RU/LE on command. Receiving TF's with Vital HP per NGT. - Objective Vital Signs & Weight: Vital Signs (12 hours) Temp Pulse Pulse Pulse Resp BP BP 04/07/20 16:00 100.2 F H 20 04/07/20 14:32 78 04/07/20 14:00 21 H 04/07/20 12:39 73 20 04/07/20 12:21 74 75 145/58 H 04/07/20 12:00 99.9 F H 20 04/07/20 11:47 78 153/65 H 04/07/20 10:34 71 154/69 H 04/07/20 10:07 71 04/07/20 10:00 19 04/07/20 09:23 90 90 166/86 H 04/07/20 08:00 22 H 04/07/20 07:47 81 04/07/20 07:35 100.9 F H 04/07/20 06:03 80 143/74 H 04/07/20 06:00 20 BP Pulse Ox Pulse Ox Pulse Ox 04/07/20 16:00 04/07/20 14:32 04/07/20 14:00 04/07/20 12:39 95 04/07/20 12:21 144/59 H 95 95 04/07/20 12:00 04/07/20 11:47 04/07/20 10:34 04/07/20 10:07 04/07/20 10:00 04/07/20 09:23 170/78 H 96 96 04/07/20 08:00 04/07/20 07:47 04/07/20 07:35 95 04/07/20 06:03 04/07/20 06:00 Weight Admit Weight 224 lb Weight 224 lb 13.944 oz Most Recent Monitor Data Heart Rate from ECG 76 NIBP 132/61 NIBP BP-Mean 84 Respiration from ECG 20 SpO2 96 I&O: 04/06/20 04/07/20 04/08/20 06:59 06:59 06:59 Intake Total 450 1854.1 570 Output Total 1210 1126 495 Balance -760 728.1 75 Result Diagrams: 04/07/20 03:14 04/07/20 03:14 Additional Labs: Microbiology 04/05/20 19:38 Urine ac catheter Urine Culture - Final NO GROWTH AT 36 HOURS 04/05/20 19:38 Urine ac catheter Urine Culture - Preliminary NO GROWTH AT 12 HOURS 04/05/20 18:34 Venous blood - Right Hand Blood Culture - Preliminary Specimen has been received and culture in progress. No Growth to date. 04/05/20 18:34 Venous blood - Right Hand Blood Culture - Preliminary NO GROWTH AT 48 HOURS 04/05/20 18:33 Venous blood - Left Hand Blood Culture - Preliminary Specimen has been received and culture in progress. No Growth to date. 04/05/20 18:33 Venous blood - Left Hand Blood Culture - Preliminary NO GROWTH AT 48 HOURS Laboratory Tests 10/23/19 04/05/20 04/05/20 11:07 18:34 18:34 WBC Neutrophils % Neutrophils % (Manual) Potassium 3.5 Troponin I 3.403 H* TSH 3rd Generation 0.2347 L COVID-19 PCR 04/05/20 04/05/20 04/05/20 18:34 18:34 19:54 WBC 14.7 H Neutrophils % 85.6 H Neutrophils % (Manual) Potassium Troponin I TSH 3rd Generation 0.1456 L COVID-19 PCR Not Detected 04/06/20 04/06/20 04/07/20 06:24 06:24 03:14 WBC 12.5 H Neutrophils % Neutrophils % (Manual) 70 77 H Potassium 3.4 L Troponin I TSH 3rd Generation COVID-19 PCR 04/07/20 09:16 WBC Neutrophils % Neutrophils % (Manual) Potassium Troponin I 1.029 H* TSH 3rd Generation COVID-19 PCR EKG Reviewed by me: Yes (Tele - SR) Hospitalist ROS - Medication Medications: Active Medications Generic Name Dose Route Start Last Admin Trade Name Freq PRN Reason Stop Dose Admin Acetaminophen 650 mg 04/05/20 19:30 04/06/20 14:16 Tylenol PO 650 mg Q6H PRN Administration Fever > 101 or Headache Albuterol/Ipratropium 3 ml 04/07/20 13:00 04/07/20 12:39 Duoneb NEB 3 ml [id number] ANUSHKA Administration Hydralazine HCl 5 mg 04/05/20 19:35 04/07/20 10:34 Apresoline SLOW IVP 5 mg Q4H PRN Administration SBP >140 Sodium Chloride 1,000 mls @ 75 mls/hr 04/05/20 19:30 04/07/20 15:27 Normal Saline 0.9% IV 1,000 mls .[id number] ANUSHKA Administration Levetiracetam 500 mg/ Device 100 mls @ 200 mls/hr 04/05/20 21:00 04/07/20 09: 47 IVPB 100 mls BID ANUSHKA Administration Labetalol HCl 10 mg 04/05/20 19:30 04/07/20 11:47 Normodyne SLOW IVP 10 mg Q2H PRN Administration SBP > 140 Pantoprazole Sodium 40 mg 04/07/20 09:00 04/07/20 09:26 Protonix IVP 40 mg DAILY ANUSHKA Administration Propofol 1,000 mg 04/05/20 22:26 04/07/20 15:22 Diprivan IV 05/05/20 22:26 1,000 mg INF PRN Administration TO ACHIEVE GOAL RASS Protocol - Exam General - other findings: somnolent on mech ventilation Eye: PERRL Eye - other findings: eyes deviate to R ENT: normocephalic atraumatic, no oropharyngeal lesions Neck: supple, symmetric, no JVD, no thyromegaly, no lymphadenopathy Heart: RRR, no gallops, no rubs, normal peripheral pulses Heart - other findings: S1, S2 Respiratory: CTAB, no wheezes, no rales, no ronchi, normal chest expansion Gastrointestinal: soft, non-tender, non-distended, normal bowel sounds, no palpable masses Gastrointestinal - other findings: obese Extremities: no cyanosis, no clubbing Skin: normal turgor Neurological - other findings: L hemiparesis Musculoskeletal: generalized weakness Psychiatric: oriented to person, somnolent, lethargic Hosp A/P (1) Intracerebral hemorrhage Code(s): I61.9 - NONTRAUMATIC INTRACEREBRAL HEMORRHAGE, UNSPECIFIED Status: Acute Qualifiers: Intracerebral hemorrhage etiology: nontraumatic Laterality: right Plan: Continue general stroke protocol, await clinical improvement, no surgical intervention recommended (2) Acute respiratory failure with hypoxia Code(s): J96.01 - ACUTE RESPIRATORY FAILURE WITH HYPOXIA Status: Acute Plan: Continue [facility] ventilation, not weanable currently (3) Acute metabolic encephalopathy Code(s): G93.41 - METABOLIC ENCEPHALOPATHY Status: Acute (4) NSTEMI (non-ST elevated myocardial infarction) Code(s): I21.4 - NON-ST ELEVATION (NSTEMI) MYOCARDIAL INFARCTION Status: Acute Plan: Supportive mgmt, likely related to #1 (5) CKD (chronic kidney disease), stage III Code(s): N18.3 - CHRONIC KIDNEY DISEASE, STAGE 3 (MODERATE) Status: Chronic - Plan clinical social work aide, respiratory therapy, DVT proph w/SCDs Continue critical support Continue mech ventilation, not weanable Nutritional support with Vital HP Continue IVF NS BP mgmt General stroke protocol Consider Palliative care AM lab: BMP, CBC, ABG PCXR in am
[2020-04-07] MEDS: Metoprolol Tartrate 50 MG TAB PER TUBE SCH (20:36)
[2020-04-08] MEDS: Propofol 1,000 MG/100 ML VIAL IV PRN ×4 (00:24→20:39)
[2020-04-08] MEDS: Labetalol HCl 100 MG/20 ML VIAL SLOW IVP PRN (03:06)
[2020-04-08 04:12] LABS: #Eosinphils 0.1 thou/uL (0.0-0.7); #Monocytes 0.6 thou/uL (0.11-0.59); #Neutrophils 6.6 thou/uL (1.40-6.50); %Basophils 0.4 % (0.0-1.0); %Eosinophils 0.8 % (0.0-10.0); %Lymphocytes 21.8 % (21.0-51.0); %Monocytes 5.9 % (0.0-10.0); Hemoglobin 10.9 g/dL (12.0-16.0); Mean Corpuscular HGB CONC 32.9 g/dL (32.0-36.0); Mean Corpuscular Hemoglobin 30.8 pg (27.0-31.0); Mean Corpuscular Volume 93.6 fL (78.0-98.0); Mean Platelet Volume 7.6 fL (7.4-10.4); Platelet Count 228 thou/uL (130-400); RBC Distribution Width 12.5 % (11.5-14.5); Red Blood Cell (RBC) Count 3.54 mill/uL (4.20-5.40); White Blood Cell (WBC) Count 9.3 thou/uL (4.8-10.8)
[2020-04-08 04:31] LABS: Anion Gap 14 mmol/L (10-20); BUN (Urea Nitrogen) 18 mg/dL (9.8-20.1); Calc. Creatinine Clearance 102 mL/min (70-130); Calcium 8.3 mg/dL (7.8-10.44); Carbon Dioxide 22 mmol/L (23-31); Chloride 109 mmol/L (98-107); Estimated GFR-MDRD 71; Glucose 142 mg/dL (83-110); Potassium 3.3 mmol/L (3.5-5.1); Sodium 142 mmol/L (136-145)
[2020-04-08] MEDS: Sodium Chloride 0.9% 1,000 ML IV SCH (05:06)
[2020-04-08] MEDS ORDERED: Potassium Chloride 40 MEQ in Sodium Chloride 0.9% 250 ML 250 ML IVPB SCH (05:30)
[2020-04-08 06:57] LABS: Actual Bicarbonate (HCO3a) 23.8 mEq/L (22-28); Base Excess (BEa) -0.1 mEq/L (-2.0 to +3.0); CO2 Tension 35.8 mmHg (35.0-45.0); Calcium, Ionized (arterial) 1.15 mmol/L (1.12-1.30); Carboxyhemoglobin (COHb) 0.3 gm% (0.0-3.0); Hemoglobin (Hb) 11.4 g/dL (12.0-16.0); O2 Tension (PaO2), arterial 103.8 mmHg (> 70.0); Potassium - ABG Lab 3.51 mmol/L (3.70-5.30); pH, Arterial 7.44 (7.35-7.45)
--- NOTE | 2020-04-08 06:58 | PRG ---
DATE OF SERVICE: I saw Mercedes Pate in our ICU room this morning. She is starting her fourth hospital day with us. Overnight, nursing does not report any change in her examination and no events. Among the electronically recorded vital signs, the highest temperature I see is 100.9 degrees Fahrenheit at 7:30 a.m. yesterday. Since then, the fever curve is coming down. Blood pressures have been between the 120s and the 140s. On examination, Ms. Pate still has a small amount of propofol running. However , she follows commands on the right side quite easily. She nods her head to questions. She withdraws the left lower extremity. The left upper extremity extends with enough stimulation. This morning's white blood cell count is 9.3, hemoglobin is 10.9. Her sodium is 142. Total IV fluid and tube feeds going in currently is 118 mL now, a bit high. Ms. Pate's neurological examination is stable. So long as we avoid exacerbating vasogenic edema, I think she has a good chance of getting through this without any surgical intervention. We will continue to follow. I suggest decreasing maintenance fluids as the tube feeds and as the electrolyte replacements are initiated. (15min) Job ID: [id number] MTDD
[2020-04-08 07:03] LABS: Puncture Site RRA
--- NOTE | 2020-04-08 07:53 | RAD ---
XR Chest 1 View Portable History: Pneumonia Comparison: Radiograph April 05, 2020 Findings: Small effusions. Anterior tube tip just below the level of clavicles in good position. Ente ema tube tip below diaphragm although out of field of view. Atelectasis throughout both lower lobes. No pneumothorax. No acute osseous abnormality. Impression: Similar appearance of the chest without significant interval improvement.
--- NOTE | 2020-04-08 08:57 | PRG ---
DATE OF SERVICE: 04/08/2020 35 minutes of critical care time. SUBJECTIVE: The patient remains intubated on mechanical ventilation. She will follow commands on the right side but not on the left. OBJECTIVE: VITAL SIGNS: Temperature 99.4, pulse 64, blood pressure 146/63, and O2 saturation 99%.HEENT: Unremarkable. NECK: No adenopathy or JVD. LUNGS: Clear. CARDIAC: S1, S2. Regular. ABDOMEN: Soft. EXTREMITIES: No edema. LABORATORY DATA: Sodium 142, potassium 3.3, chloride 109, CO2 of 22, BUN 18, creatinine 0.8, and glucose 142. White blood cell count 9.3, hematocrit 33.1, and platelet count 228. PH 7.44, pCO2 of 35, pO2 of 103. Chest x-ray, no acute findings. ASSESSMENT: 1. Status post large right-sided brain bleed with intraventricular hemorrhage. 2. Underlying chronic obstructive pulmonary disease. 3. Respiratory failure, requiring mechanical ventilation. 4. Hypertension. 5. Elevated cardiac enzymes. PLAN: 1. Continuing supportive care. 2. Since she is on propofol and tube feeds, I will go ahead and stop her routine maintenance IV fluids. 3. Continue Protonix for GI prophylaxis. 4. SCDs for DVT prophylaxis. 5. We will speak with . Job ID: [id number]
[2020-04-08] MEDS: Pantoprazole 40 MG VIAL IVP SCH ×2 (09:26→10:31)
[2020-04-08] MEDS: Metoprolol Tartrate 50 MG TAB PER TUBE SCH ×2 (09:46→20:39)
[2020-04-08] MEDS: hydrALAZINE 20 MG/ML VIAL SLOW IVP PRN (10:36)
--- NOTE | 2020-04-08 14:35 | EKG ---
Test Reason : Blood Pressure : / mmHG Vent. Rate : 097 BPM Atrial Rate : 097 BPM P-R Int : 160 ms QRS Dur : 074 ms QT Int : 354 ms P-R-T Axes : 056 -15 041 degrees QTc Int : 449 ms Normal sinus rhythm with sinus arrhythmia Possible Left atrial enlargement Nonspecific ST abnormality Abnormal ECG Confirmed by BORIS JENSEN DO ([id number]), video tape editor KORINA MELENDEZ ([id number]) on 04/08/2020 2:34:24 PM Referred By: Confirmed By:BORIS JENSEN DO
--- NOTE | 2020-04-08 14:35 | EKG ---
Test Reason : Blood Pressure : / mmHG Vent. Rate : 092 BPM Atrial Rate : 092 BPM P-R Int : 164 ms QRS Dur : 078 ms QT Int : 386 ms P-R-T Axes : 063 -07 053 degrees QTc Int : 477 ms Normal sinus rhythm with sinus arrhythmia Possible Left atrial enlargement Nonspecific ST abnormality Abnormal ECG Confirmed by BORIS JENSEN DO ([id number]), news videotape editor KORINA MELENDEZ ([id number]) on 04/08/2020 2:34:24 PM Referred By: Confirmed By:BORIS JENSEN DO
--- NOTE | 2020-04-08 15:43 | PDOC.HOSPP ---
- Subjective Encounter Date: 04/08/20 Encounter Time: 15:30 Subjective: f[facility] for [facility] Keppra [facility]. Responding to voice and moving RU/LE per nursing. - Objective Vital Signs & Weight: Vital Signs (12 hours) Temp Pulse Pulse Pulse Resp BP BP 04/08/20 14:30 74 04/08/20 14:00 19 04/08/20 12:41 80 04/08/20 12:00 99.1 F 20 04/08/20 10:44 73 04/08/20 10:36 74 163/81 H 04/08/20 10:00 19 04/08/20 08:48 64 77 150/68 H 04/08/20 08:00 98.9 F 22 H 04/08/20 06:49 69 04/08/20 06:00 16 04/08/20 04:00 99.4 F 16 BP Pulse Ox Pulse Ox Pulse Ox 04/08/20 14:30 04/08/20 14:00 04/08/20 12:41 04/08/20 12:00 04/08/20 10:44 04/08/20 10:36 04/08/20 10:00 04/08/20 08:48 150/68 H 98 98 04/08/20 08:00 98 04/08/20 06:49 04/08/20 06:00 04/08/20 04:00 Weight Admit Weight 224 lb Weight 224 lb 13.944 oz Most Recent Monitor Data Heart Rate from ECG 67 NIBP 121/45 NIBP BP-Mean 70 Respiration from ECG 20 SpO2 97 I&O: 04/07/20 04/08/20 04/09/20 06:59 06:59 06:59 Intake Total 1854.1 3289 334 Output Total 1126 1130 725 Balance 728.1 2159 -391 Result Diagrams: 04/08/20 04:03 04/08/20 04:03 Additional Labs: Microbiology 04/05/20 19:38 Urine ac catheter Urine Culture - Final NO GROWTH AT 36 HOURS 04/05/20 19:38 Urine ac catheter Urine Culture - Preliminary NO GROWTH AT 12 HOURS 04/05/20 18:34 Venous blood - Right Hand Blood Culture - Preliminary Specimen has been received and culture in progress. No Growth to date. 04/05/20 18:34 Venous blood - Right Hand Blood Culture - Preliminary NO GROWTH AT 48 HOURS 04/05/20 18:33 Venous blood - Left Hand Blood Culture - Preliminary Specimen has been received and culture in progress. No Growth to date. 04/05/20 18:33 Venous blood - Left Hand Blood Culture - Preliminary NO GROWTH AT 48 HOURS Laboratory Tests 10/23/19 04/05/20 04/05/20 11:07 18:34 18:34 WBC Neutrophils % Neutrophils % (Manual) Potassium 3.5 Troponin I 3.403 H* TSH 3rd Generation 0.2347 L COVID-19 PCR 04/05/20 04/05/20 04/05/20 18:34 18:34 19:54 WBC 14.7 H Neutrophils % 85.6 H Neutrophils % (Manual) Potassium Troponin I TSH 3rd Generation 0.1456 L COVID-19 PCR Not Detected 04/06/20 04/06/20 04/07/20 06:24 06:24 03:14 WBC 12.5 H Neutrophils % Neutrophils % (Manual) 70 77 H Potassium 3.4 L Troponin I TSH 3rd Generation COVID-19 PCR 04/07/20 09:16 WBC Neutrophils % Neutrophils % (Manual) Potassium Troponin I 1.029 H* TSH 3rd Generation COVID-19 PCR Radiology Reviewed by me: Yes (PCXR - bilat lower lobe atelectasis, lines/tubes in place) EKG Reviewed by me: Yes (Tele - SR) Hospitalist ROS - Medication Medications: Active Medications Generic Name Dose Route Start Last Admin Trade Name Freq PRN Reason Stop Dose Admin Acetaminophen 650 mg 04/05/20 19:30 04/06/20 14:16 Tylenol PO 650 mg Q6H PRN Administration Fever > 101 or Headache Albuterol/Ipratropium 3 ml 04/07/20 13:00 04/08/20 12:41 Duoneb NEB 3 ml [id number] ANUSHKA Administration Hydralazine HCl 5 mg 04/05/20 19:35 04/08/20 10:36 Apresoline SLOW IVP 5 mg Q4H PRN Administration SBP >140 Levetiracetam 500 mg/ Device 100 mls @ 200 mls/hr 04/05/20 21:00 04/08/20 09: 46 IVPB 100 mls BID ANUSHKA Administration Labetalol HCl 10 mg 04/05/20 19:30 04/08/20 03:06 Normodyne SLOW IVP 10 mg Q2H PRN Administration SBP > 140 Metoprolol Tartrate 50 mg 04/07/20 21:00 04/08/20 09:46 Lopressor PER TUBE 50 mg BID ANUSHKA Administration Pantoprazole Sodium 40 mg 04/07/20 09:00 04/08/20 10:31 Protonix IVP 40 mg DAILY ANUSHKA Administration Propofol 1,000 mg 04/05/20 22:26 04/08/20 14:43 Diprivan IV 05/05/20 22:26 1,000 mg INF PRN Administration TO ACHIEVE GOAL RASS Protocol - Exam General - other findings: nods to questions Eye: PERRL, anicteric sclera ENT: normocephalic atraumatic, no oropharyngeal lesions ENT - other findings: ETT/NGT in place Neck: supple, symmetric, no JVD, no thyromegaly Heart: RRR, no gallops, no rubs, normal peripheral pulses Heart - other findings: S1, S2 Respiratory: CTAB, no wheezes, no rales, no ronchi Respiratory - other findings: diminished in bases Gastrointestinal: soft, non-tender, non-distended, normal bowel sounds, no palpable masses Extremities: no cyanosis, no clubbing, no edema Skin: normal turgor, no lesions Neurological: no new deficit Neurological - other findings: L hemiparesis, moves RU/LE Musculoskeletal: generalized weakness Psychiatric: somnolent, lethargic Hosp A/P (1) Intracerebral hemorrhage Code(s): I61.9 - NONTRAUMATIC INTRACEREBRAL HEMORRHAGE, UNSPECIFIED Status: Acute Qualifiers: Intracerebral hemorrhage etiology: nontraumatic Laterality: right Plan: Continue supportive mgmt, no acute surgical intervention planned currently (2) Acute respiratory failure with hypoxia Code(s): J96.01 - ACUTE RESPIRATORY FAILURE WITH HYPOXIA Status: Acute Plan: Continue [facility] ventilation, wean as clinically indicated (3) Acute metabolic encephalopathy Code(s): G93.41 - METABOLIC ENCEPHALOPATHY Status: Acute (4) NSTEMI (non-ST elevated myocardial infarction) Code(s): I21.4 - NON-ST ELEVATION (NSTEMI) MYOCARDIAL INFARCTION Status: Acute Plan: Medical mgmt, no anticoagulation given ICH (5) CKD (chronic kidney disease), stage III Code(s): N18.3 - CHRONIC KIDNEY DISEASE, STAGE 3 (MODERATE) Status: Chronic - Plan PT/OT, social worker masters, speech therapy, respiratory therapy, DVT proph w/SCDs Continue critical support Continue mech ventilation, not weanable currently Nutritional support with Vital HP Saline lock IVF's BP mgmt General stroke protocol Consider Palliative care AM lab: BMP, CBC, ABG PCXR in am
[2020-04-09] MEDS: Propofol 1,000 MG/100 ML VIAL IV PRN ×5 (01:42→23:20)
[2020-04-09 04:56] LABS: #Eosinphils 0.2 thou/uL (0.0-0.7); #Lymphocytes 1.8 thou/uL (1.20-3.40); #Monocytes 0.6 thou/uL (0.11-0.59); #Neutrophils 6.3 thou/uL (1.40-6.50); %Basophils 0.5 % (0.0-1.0); %Eosinophils 2.5 % (0.0-10.0); %Lymphocytes 20.4 % (21.0-51.0); %Monocytes 6.1 % (0.0-10.0); %Neutrophils 70.5 % (42.0-75.0); Hemoglobin 10.5 g/dL (12.0-16.0); Mean Corpuscular HGB CONC 32.2 g/dL (32.0-36.0); Mean Corpuscular Hemoglobin 30.4 pg (27.0-31.0); Mean Corpuscular Volume 94.6 fL (78.0-98.0); Mean Platelet Volume 7.5 fL (7.4-10.4); Platelet Count 237 thou/uL (130-400); RBC Distribution Width 12.3 % (11.5-14.5); Red Blood Cell (RBC) Count 3.44 mill/uL (4.20-5.40)
[2020-04-09 05:19] LABS: Anion Gap 13 mmol/L (10-20); BUN (Urea Nitrogen) 18 mg/dL (9.8-20.1); Calc. Creatinine Clearance 106 mL/min (70-130); Calcium 8.4 mg/dL (7.8-10.44); Carbon Dioxide 25 mmol/L (23-31); Chloride 106 mmol/L (98-107); Estimated GFR-MDRD 74; Glucose 147 mg/dL (83-110); Potassium 3.4 mmol/L (3.5-5.1); Sodium 141 mmol/L (136-145)
[2020-04-09] MEDS: Potassium Chloride 20 MEQ in Premix Bag 1 BAG IVPB SCH ×2 (06:41→08:45)
[2020-04-09] MEDS: hydrALAZINE 20 MG/ML VIAL SLOW IVP PRN ×2 (06:41→18:05)
[2020-04-09 07:00] LABS: Actual Bicarbonate (HCO3a) 26.1 mEq/L (22-28); Base Excess (BEa) 2.6 mEq/L (-2.0 to +3.0); CO2 Tension 36.3 mmHg (35.0-45.0); Calcium, Ionized (arterial) 1.15 mmol/L (1.12-1.30); Hemoglobin (Hb) 11.5 g/dL (12.0-16.0); O2 Tension (PaO2), arterial 83.4 mmHg (> 70.0); pH, Arterial 7.47 (7.35-7.45)
[2020-04-09 07:03] LABS: ALV-art Gradient 192.075 (0-20); Puncture Site RRA
--- NOTE | 2020-04-09 07:19 | PRG ---
DATE OF SERVICE: 04/09/2020 I saw Mercedes Pate in her ICU room this morning, remains on propofol and on the ventilator. There are intermittent neuro checks. Nursing reports that she follows commands on the right, but not the left, which has been stable since her admission. Overnight, the highest temperature I saw recorded was 100.7 degrees Fahrenheit. Blood pressures have been in the 140s to 160s, slightly higher than they have been over the past few days. On examination, Ms. Pate is not opening her eyes for me, but she does lift up her thumb and she shows me two fingers. She wiggles her toes. All of this is on the right side. On the left, she withdraws the left lower extremity. With the left upper extremity, all that she can do is to extend. This has not changed. Sodium is 141. White blood cell count is 9.0. We get into the point that Ms. Pate has needed ventilatory support for long enough that a trach and PEG should be considered. Discussion should be held with the family and a consult placed for trach and PEG placement. Once those are in, we can be in the slow process of weaning ventilatory support more safely and give her nutritional support as well. (15min) Job ID: [id number] MTDD
--- NOTE | 2020-04-09 07:29 | RAD ---
LEFT WRIST 3 VIEWS: Date: 04/09/2020 INDICATION: Fall with swelling. COMPARISON: None. FINDINGS: There is diffuse soft tissue swelling of the left forearm and left wrist. There is scattered osteoart hrosis of the radiocarpal joint. There is mild ulnar minus configuration at the DRUJ. Carpal alignmen t appears within normal limits. IMPRESSION: No acute osseous abnormality. POS: BH
--- NOTE | 2020-04-09 07:30 | RAD ---
LEFT HUMERUS 2 VIEWS: Date: 04/09/2020 INDICATION: History of fall with swelling. COMPARISON: None. IMPRESSION: There is moderate AC joint osteoarthrosis. No acute osseous abnormality is evident. There is diffuse soft tissue swelling of the left upper extremity. There is an IV cannula within the soft tissues of t he left mid arm. POS: BH
--- NOTE | 2020-04-09 07:31 | RAD ---
LEFT ELBOW 4 VIEWS: Date: 04/09/2020 INDICATION: Fall with swelling. COMPARISON: None. IMPRESSION: Radiocapitellar alignment appears within normal limits. No displaced fracture is noted. No joint caps ular distention is evident. There is soft tissue swelling of the left upper arm and proximal left for earm. There is an IV cannula within the soft tissues of the medial left arm. POS: BH
--- NOTE | 2020-04-09 07:46 | RAD ---
Exam: Chest one view HISTORY:Pneumonia Comparison: 04/08/2020 FINDINGS: Cardiac silhouette:Cardiomegaly. Aorta: Atherosclerosis Pulmonary vessels: Normal Costophrenic angles: Clear LUNGS: Scattered interstitial and alveolar opacities, unchanged. Lines and tubes: Stable endotracheal and nasogastric tube Pneumothorax: None Osseous abnormalities: None IMPRESSION: Stable multi lobar pneumonia.
[2020-04-09] MEDS: Metoprolol Tartrate 50 MG TAB PER TUBE SCH ×2 (08:23→21:59)
--- NOTE | 2020-04-09 08:47 | PRG ---
DATE OF SERVICE: 04/09/2020 35 minutes critical care time. SUBJECTIVE: The patient remains intubated, on mechanical ventilation. She will follow commands with her right side when her sedation is lessened. OBJECTIVE: VITAL SIGNS: Her temperature is 100.5 with T-max of 100.7, pulse 91, blood pressure 166/78, O2 saturation 95%. 24-four intake 2820, output 1835. HEENT: Unremarkable. NECK: No JVD. LUNGS: Clear anteriorly. CARDIAC: S1, S2. Regular. ABDOMEN: Soft. EXTREMITIES: No edema except in her left arm where she has some edema in the palmar aspect of her hand extending up toward her elbow. LABORATORY DATA: White blood cell count 9, hematocrit 32.6, and platelet count 237. PH 7.47, pCO2 of 36, pO2 of 83 on SIMV rate 16, tidal volume 500, PEEP 5, pressure 10, FiO2 45%. Sodium 141, potassium 3.4, chloride 106, CO2 of 25, BUN 18, creatinine 0.7, glucose 147. Chest x-ray shows no significant change. ASSESSMENT: 1. Status post large intraparenchymal bleed. 2. Underlying chronic obstructive pulmonary disease. 3. Respiratory failure requiring mechanical ventilation. 4. Hypertension. 5. Elevated cardiac enzymes. PLAN: 1. Discussed with her on the phone about possibly pursuing tracheostomy and PEG tube placement. The family basically needs some time to talk this over and think about it. 2. I have decreased her ventilator rate some. 3. We will try to elevate the arm and see if we can alleviate some of the edema. 4. Continue to monitor labs, blood gas, etc. 5. Protonix for GI prophylaxis, SCDs for DVT prophylaxis. Job ID: [id number]
[2020-04-09] MEDS: Morphine 2 MG/ML VIAL SLOW IVP PRN ×2 (10:16→18:19)
[2020-04-09] MEDS: Acetaminophen 325 MG TAB PO PRN ×2 (10:17→17:54)
[2020-04-09] MEDS: Pantoprazole 40 MG VIAL IVP SCH (10:18)
--- NOTE | 2020-04-09 15:40 | PDOC.PALCO ---
Palliative Care Consult - Consult Details Requesting Physician: Dr Naranjo Reason for Consult: goals of care, family support Family Members Present: Patient and daughter Stephanie - Pertinent HPI 74 year old female who was brought to the hospital after her found her on the floor Tuesday evening at aprox 5 pm, beside her bed and had vomited, lethargy/altered mental status. [place]ing the patient the night before around 6:45. He called 911 and patient was transported by EMS to [facility] emergency room for further evaluation. GCS 9, oriented to self on arrival and withdraws to pain, word salad, left sided hemineglect with left leg paralysis. No recent illness, falls, was at baseline last time she was seen by spouse. TIA in recent months. Evaluation in the emergency room identified Interventricular hemorrhage with subfalcine herniation , NSTEMI, suspected left lower lobe pneumonia suspected secondary to aspiration. Intubated, and admitted to CCU for higher level of care. - Pertinent PMH HTN, COPD, Anxiety - Social History Alcohol Use: none Drug Use History: none Living Situation: - Medications MAR Reviewed: Yes - Allergies Allergies/Adverse Reactions: Allergies Allergy/AdvReac Type Severity Reaction Status Date / Time No Known Allergies Allergy Verified 04/05/20 23:17 - Subjective Opens eyes to voice, intubated with mechanical ventilation. - ROS Non Response: due to endotracheal tube, due to mental status - Objective Vital Signs: Vital Signs - Most Recent Temp Pulse Resp BP Pulse Ox 99.1 F 64 17 164/71 H 96 04/09/20 12:00 04/09/20 12:57 04/09/20 12:00 04/09/20 08:48 04/09/20 08:48 Palliative Performance Scale: 20 - Physical Exam Constitutional: ill appearing HEENT: moist MMs, sclera anicteric Respiratory: no rhonchi, no wheezing Deviation from normal: Mechanical ventilation Cardiovascular: RRR Gastrointestinal: non-tender, positive bowel sounds Deviation from normal: Obese Genitourinary: ac catheter Musculoskeletal: edema present Neurology: hemiplegia Skin: bruising, fragile Deviation from normal: Oriented to self, lethargic - Problem List (1) Palliative care encounter Code(s): Z51.5 - ENCOUNTER FOR PALLIATIVE CARE Current Visit: Yes Status: Acute (2) Acute metabolic encephalopathy Code(s): G93.41 - METABOLIC ENCEPHALOPATHY Current Visit: Yes Status: Acute (3) Acute respiratory failure with hypoxia Code(s): J96.01 - ACUTE RESPIRATORY FAILURE WITH HYPOXIA Current Visit: Yes Status: Acute (4) Intracerebral hemorrhage Code(s): I61.9 - NONTRAUMATIC INTRACEREBRAL HEMORRHAGE, UNSPECIFIED Current Visit: Yes Status: Acute Qualifiers: Intracerebral hemorrhage etiology: nontraumatic Laterality: right (5) NSTEMI (non-ST elevated myocardial infarction) Code(s): I21.4 - NON-ST ELEVATION (NSTEMI) MYOCARDIAL INFARCTION Current Visit : Yes Status: Acute (6) CKD (chronic kidney disease), stage III Code(s): N18.3 - CHRONIC KIDNEY DISEASE, STAGE 3 (MODERATE) Current Visit: Yes Status: Chronic - Plan/Recommendations Plan: Life review with patient and daughter Stephanie. They state she enjoyed social media specifically Facebook and [employer]. Was opinionated and always " Had her hair done and makeup on". Relayed she was anxious, and could worry. Four Grandchildren, they called her Ashleigh and her Svetlana. She has been 40 years and was raised and continued to live in [place]. Relayed she has Directive to Physician and will obtain copy for the hospital. Mr Rio and Stephanie shared that she would not desire to live if there was poor meaningful recovery. They revisited Trach/Peg that had been presented and we discussed that today no decisions needed to be made. The daughter Diana will come see her mom tomorrow. Reviewed current status, reinforcing information relayed by physicians involved in her care. Discussed as decisions are made that they are not their wishes as a family, but to reflect what is stated in Directives and that they are just Lyndas voice relaying her desires. Communicated with Dr Naranjo, Dr Kyle, Dr Meraz Emotional Support, therapeutic listening Will place Spiritual Care consult Please also refer to Palliative Care notes in note section. [75] minutes spent on this encounter with >50% of the time in counseling and coordination of care. Thank you for this very appropriate consult.
--- NOTE | 2020-04-09 21:46 | CT ---
CT BRAIN NONCONTRAST: DATE: 04/09/2020 9:17 PM HISTORY: 74-year-old female with intracranial hemorrhage with recent neurological changes. Dr. Booker discussed the findings by telephone with neurosurgery DAYANARA Candelaria at 9:42 PM 04/09/2020 COMPARISON: 04/06/2020 FINDINGS: Again noted is the large right upper frontal and upper temporal intra-axial hematoma. It measures brittani roximately 5.8 x 4.7 cm, and has a moderately large amount of surrounding vasogenic edema. It causes mass effect, effacing sulci diffusely, especially in the right cerebral hemisphere, distorting and compressing the right lateral ventricle, and causing right to left midline shift of the septum pellucidum a distance of 9 mm,, slightly greater than the 7 mm on the prior CT. The perimesencephalic , ambient cistern is partially effaced. There is no tonsillar herniation. The right lateral ventricle appears more compressed and narrowed than on the previous CT. The body, trigone, and occipi kyree horn, along with temporal horn, of left lateral ventricle, remain mildly dilated. Intraventricular hematomas are again noted. This has decreased on the right and slightly decreased on the left. Small amount of subarachnoid hemorrhage in the left parietal sulci are minimally less than before. IMPRESSION: 1) large right frontal intra-axial hematoma with surrounding vasogenic edema, mass effect, and subfal cine herniation. 2) the mass effect, including subfalcine herniation is slightly worse than before
[2020-04-09] MEDS ORDERED: Dexamethasone 10 MG/ML VIAL SLOW IVP SCH (22:10)
[2020-04-09] MEDS ORDERED: Mannitol 12.5 GM/50 ML SLOW IVP SCH (22:15)
[2020-04-10 04:17] LABS: #Basophils 0.1 thou/uL (0.0-0.2); #Lymphocytes 0.6 thou/uL (1.20-3.40); #Monocytes 0.2 thou/uL (0.11-0.59); #Neutrophils 8.2 thou/uL (1.40-6.50); %Basophils 1.2 % (0.0-1.0); %Eosinophils 0.2 % (0.0-10.0); %Lymphocytes 6.3 % (21.0-51.0); %Monocytes 1.7 % (0.0-10.0); %Neutrophils 90.6 % (42.0-75.0); Hemoglobin 11.8 g/dL (12.0-16.0); Mean Corpuscular HGB CONC 32.8 g/dL (32.0-36.0); Mean Corpuscular Hemoglobin 30.7 pg (27.0-31.0); Mean Corpuscular Volume 93.5 fL (78.0-98.0); Mean Platelet Volume 8.4 fL (7.4-10.4); Platelet Count 238 thou/uL (130-400); RBC Distribution Width 12.4 % (11.5-14.5); Red Blood Cell (RBC) Count 3.84 mill/uL (4.20-5.40); White Blood Cell (WBC) Count 9.1 thou/uL (4.8-10.8)
[2020-04-10] MEDS: hydrALAZINE 20 MG/ML VIAL SLOW IVP PRN ×2 (04:34→22:14)
[2020-04-10 04:37] LABS: Anion Gap 15 mmol/L (10-20); BUN (Urea Nitrogen) 19 mg/dL (9.8-20.1); Calc. Creatinine Clearance 111 mL/min (70-130); Calcium 8.8 mg/dL (7.8-10.44); Carbon Dioxide 24 mmol/L (23-31); Chloride 102 mmol/L (98-107); Estimated GFR-MDRD 76; Glucose 189 mg/dL (83-110); Potassium 4.1 mmol/L (3.5-5.1); Sodium 137 mmol/L (136-145)
[2020-04-10] MEDS: Labetalol HCl 100 MG/20 ML VIAL SLOW IVP PRN (05:04)
--- NOTE | 2020-04-10 06:41 | PRG ---
DATE OF SERVICE: 04/10/2020 I saw Ms. Pate in ICU this morning. Overnight, the Neurosurgery Service was called for some decreased following commands on the right side. CT scans were done overnight and again this morning. Vasogenic edema is increased in size likely to poor control of fluid intake. There was a fever yesterday as well. Also complicating matters. Among the electronically recorded vital signs, 102 degrees Fahrenheit is the maximum temperature I see. Blood pressures have been up into the 170s and 180s overnight, but usually run between the 120s and 150s. On examination, now she follows commands. She was given mannitol and Decadron. Total fluid intake needs to be limited. I am going to write an order now to make a maximum intake of 2000 mL of fluid in a 24-hour period and this has to include tube feeds and tube feed flushes and IV fluids and anything entering her body. We need to do much better job of controlling her fluid intake. I am going to Hep-Lock her IV. We are going to stop the water flushes because free water intake will also exacerbate her vasogenic edema. Very unusual for any neurological deterioration happen after maximal swelling at three days and usually that is a result of overindulgence of fluid. Also complicating matters are increased blood pressure and her febrile state, both of which can be controlled with cooling blankets, Tylenol, and antihypertensives. The CT scans do not show significant change in size of the clot, only the edema. I believe she can make recovery from this back to a conscious state in which she communicates and likely cares for herself, but with some permanent weakness on the left side of her body. Job ID: [id number]
[2020-04-10 06:46] LABS: Actual Bicarbonate (HCO3a) 22.9 mEq/L (22-28); Base Excess (BEa) 0.1 mEq/L (-2.0 to +3.0); CO2 Tension 31.8 mmHg (35.0-45.0); Calcium, Ionized (arterial) 1.18 mmol/L (1.12-1.30); Carboxyhemoglobin (COHb) 0.1 gm% (0.0-3.0); Hemoglobin (Hb) 13.1 g/dL (12.0-16.0); O2 Tension (PaO2), arterial 69.6 mmHg (> 70.0); Potassium - ABG Lab 3.77 mmol/L (3.70-5.30); pH, Arterial 7.48 (7.35-7.45)
[2020-04-10 06:48] LABS: Puncture Site RRA
--- NOTE | 2020-04-10 07:49 | CT ---
CT OF THE BRAIN WITHOUT CONTRAST: INDICATION: History of intraparenchymal hemorrhage. COMPARISON: Prior exam dated 04/09/2020 at 9:17 p.m. FINDINGS: The intraparenchymal hemorrhage centered within the right frontal lobe with surrounding vasogenic wolfgang ma is slightly larger, now measuring 5.8 x 5.2 cm where previously this measured 5.8 x 4.7 cm. The r [id number] midline shift is fairly stable measuring 8-9 mm. Layered hemorrhage within the posterio r horn of the left lateral ventricle is similar-appearing. A small amount of subarachnoid hemorrhage overlying the left parietal convexity is similar-appearing. Mastoid air cells are clear. Mucosal t hickening within the ethmoid air cells and t maxillary sinus is stable-appearing. Partial effusions within the mastoid air cells are stable. The skull is intact. IMPRESSION: 1. Persistent right frontal intraaxial hemorrhage with surrounding vasogenic edema and [id number] midline shift 8-9 mm. 2. Persistent intraventricular hemorrhage within the posterior horn of the left lateral ventricle. 3. Stable small amount of subarachnoid hemorrhage overlying the left parietal convexity. POS: BH
--- NOTE | 2020-04-10 08:05 | PRG ---
DATE OF SERVICE: 04/10/2020 35 minutes critical care time. SUBJECTIVE: Ms. Pate remains intubated on mechanical ventilation. She had a decrease in her ability to follow commands on the right side. Last night was taken for a head CT, which is unchanged. OBJECTIVE: VITAL SIGNS: Her temperature is 99.9 with a T-max of 102, pulse 92, blood pressure 167/72, O2 saturation generally in the mid 90s. Intake for 24 hours was 2009, output 3315. HEENT: Unremarkable. HEENT: Unremarkable. NECK: No adenopathy or JVD. LUNGS: Clear. CARDIAC: S1, S2. Regular. ABDOMEN: Soft and nontender. EXTREMITIES: No edema. NEUROLOGIC: Will not follow commands on the right, but does move the right leg spontaneously. LABORATORY DATA: White blood cell count 9.1, hematocrit 35.9, and platelet count 238. PH of 7.48, pCO2 of 31, pO2 of 69, on SIMV rate 12, tidal volume 500, PEEP 5, pressure 10, FiO2 45%. Sodium 137, potassium 4.1, chloride 102, CO2 of 24, BUN 19, creatinine 0.7, glucose 189. Chest x-ray shows no significant change. ASSESSMENT: 1. Massive intraparenchymal brain bleed. 2. Fever, probably secondary to brain bleed. 3. Acute respiratory failure requiring mechanical ventilation. 4. Doubt she would be able to protect her airway if extubated. PLAN: 1. Continue mechanical ventilation at present settings. 2. Will converse with family today and see where they are leaning in regard to tracheostomy for PEG tube placement versus extubation. Prognosis looks quite poor. Job ID: [id number]
--- NOTE | 2020-04-10 08:44 | RAD ---
CHEST 1 VIEW: INDICATION: History of pneumonia. COMPARISON: Prior exam dated 04/09/2020. FINDINGS: Left-sided pleural effusion persists. There is improved aeration of the right lung base. Left basil ar opacity persists. No pneumothorax is evident. The patient remains intubated with gastric cathete r placement. Mild cardiomegaly is stable-appearing. IMPRESSION: Improvement in airspace opacity in the right lower lobe. Persistent left-sided pleural parenchymal o pacity. No pneumothorax is evident. POS: BH
[2020-04-10] MEDS: Propofol 1,000 MG/100 ML VIAL IV PRN ×2 (08:51→17:04)
[2020-04-10] MEDS: Acetaminophen 325 MG TAB PO PRN (08:52)
[2020-04-10] MEDS: Metoprolol Tartrate 50 MG TAB PER TUBE SCH ×2 (08:52→21:00)
[2020-04-10] MEDS: Pantoprazole 40 MG GRANULES PACKET PER TUBE SCH (08:53)
--- NOTE | 2020-04-10 09:38 | PDOC.HOSPP ---
- Subjective Encounter Date: 04/10/20 Encounter Time: 09:30 Subjective: f/u for intracerebral hemorrhage continuing on [facility] ventilation and unable to wean currently. - Objective Vital Signs & Weight: Vital Signs (12 hours) Temp Pulse Resp BP Pulse Ox 04/10/20 08:00 100.8 F H 21 H 96 04/10/20 06:42 100 04/10/20 06:00 22 H 04/10/20 05:04 83 188/91 H 04/10/20 04:34 73 174/80 H 04/10/20 04:00 99.9 F H 20 04/10/20 02:14 72 127/58 L 04/10/20 02:00 21 H 04/10/20 00:15 85 22 H 92 L 04/10/20 00:00 99.8 F H 22 H 04/09/20 22:00 19 04/09/20 21:59 59 L 161/62 H Weight Admit Weight 224 lb Weight 225 lb 4.999 oz Most Recent Monitor Data Heart Rate from ECG 89 NIBP 150/79 NIBP BP-Mean 102 Respiration from ECG 24 SpO2 97 I&O: 04/09/20 04/10/20 04/11/20 06:59 06:59 06:59 Intake Total 2820 2010 60 Output Total 1835 3315 355 Balance 230 -5706 -988 Result Diagrams: 04/10/20 03:30 04/10/20 03:30 Additional Labs: Microbiology 04/05/20 19:38 Urine ac catheter Urine Culture - Final NO GROWTH AT 36 HOURS 04/09/20 19:05 Venous blood - Right Arm Blood Culture - Preliminary Specimen has been received and culture in progress. No Growth to date. 04/09/20 18:28 Picc Line - Left Brachiocephalic vein Blood Culture - Preliminary Specimen has been received and culture in progress. No Growth to date. 04/05/20 19:38 Urine ac catheter Urine Culture - Preliminary NO GROWTH AT 12 HOURS 04/05/20 18:34 Venous blood - Right Hand Blood Culture - Preliminary Specimen has been received and culture in progress. No Growth to date. 04/05/20 18:34 Venous blood - Right Hand Blood Culture - Preliminary NO GROWTH AT 48 HOURS 04/05/20 18:33 Venous blood - Left Hand Blood Culture - Preliminary Specimen has been received and culture in progress. No Growth to date. 04/05/20 18:33 Venous blood - Left Hand Blood Culture - Preliminary NO GROWTH AT 48 HOURS Laboratory Tests 10/23/19 04/05/20 04/05/20 11:07 18:34 18:34 WBC Neutrophils % Neutrophils % (Manual) Potassium 3.5 Troponin I 3.403 H* TSH 3rd Generation 0.2347 L COVID-19 PCR 04/05/20 04/05/20 04/05/20 18:34 18:34 19:54 WBC 14.7 H Neutrophils % 85.6 H Neutrophils % (Manual) Potassium Troponin I TSH 3rd Generation 0.1456 L COVID-19 PCR Not Detected 04/06/20 04/06/20 04/07/20 06:24 06:24 03:14 WBC 12.5 H Neutrophils % Neutrophils % (Manual) 70 77 H Potassium 3.4 L Troponin I TSH 3rd Generation COVID-19 PCR 04/07/20 09:16 WBC Neutrophils % Neutrophils % (Manual) Potassium Troponin I 1.029 H* TSH 3rd Generation COVID-19 PCR Radiology Reviewed by me: Yes (CT brain - persistent vasogenic edema, prior area of stroke unchanged) EKG Reviewed by me: Yes (Tele - SR) Hospitalist ROS - Medication Medications: Active Medications Generic Name Dose Route Start Last Admin Trade Name Freq PRN Reason Stop Dose Admin Acetaminophen 650 mg 04/05/20 19:30 04/10/20 08:52 Tylenol PO 650 mg Q6H PRN Administration Fever > 101 or Headache Albuterol/Ipratropium 3 ml 04/07/20 13:00 04/10/20 06:35 Duoneb NEB 3 ml [id number] ANUSHKA Administration Hydralazine HCl 5 mg 04/05/20 19:35 04/10/20 04:34 Apresoline SLOW IVP 5 mg Q4H PRN Administration SBP >140 Levetiracetam 500 mg/ Device 100 mls @ 200 mls/hr 04/05/20 21:00 04/10/20 08: 51 IVPB 100 mls BID ANUSHKA Administration Labetalol HCl 10 mg 04/05/20 19:30 04/10/20 05:04 Normodyne SLOW IVP 10 mg Q2H PRN Administration SBP > 140 Metoprolol Tartrate 50 mg 04/07/20 21:00 04/10/20 08:52 Lopressor PER TUBE 50 mg BID ANUSHKA Administration Morphine Sulfate 2 mg 04/05/20 22:26 04/09/20 18:19 Morphine SLOW IVP 05/05/20 22:26 2 mg Q1H PRN Administration Breakthrough Pain/Agitation Pantoprazole Sodium 40 mg 04/10/20 09:00 04/10/20 08:53 Protonix PER TUBE 40 mg DAILY ANUSHKA Administration Propofol 1,000 mg 04/05/20 22:26 04/10/20 08:51 Diprivan IV 05/05/20 22:26 1,000 mg INF PRN Administration TO ACHIEVE GOAL RASS Protocol - Exam General - other findings: somnolent on [facility] vent Eye: PERRL, anicteric sclera ENT: normocephalic atraumatic, no oropharyngeal lesions ENT - other findings: ETT in place Neck: supple, symmetric, no JVD, no thyromegaly Heart: RRR, no murmur, no gallops, no rubs, normal peripheral pulses Heart - other findings: S1, S2 Respiratory: CTAB, no wheezes, no rales, no ronchi, normal chest expansion Gastrointestinal: soft, non-tender, non-distended, normal bowel sounds, no palpable masses Extremities: no cyanosis, no clubbing, no edema Skin: normal turgor, no lesions Neurological - other findings: L hemiparesis, R hand movement Psychiatric: oriented to person, somnolent Hosp A/P (1) Intracerebral hemorrhage Code(s): I61.9 - NONTRAUMATIC INTRACEREBRAL HEMORRHAGE, UNSPECIFIED Status: Acute Qualifiers: Intracerebral hemorrhage etiology: nontraumatic Laterality: right Plan: Continue supportive mgmt, fluid mgmt, poor prognosis (2) Acute respiratory failure with hypoxia Code(s): J96.01 - ACUTE RESPIRATORY FAILURE WITH HYPOXIA Status: Acute Plan: Not weanable currently from [facility] ventilation (3) Febrile Code(s): R50.9 - FEVER, UNSPECIFIED Status: Acute Plan: Likely neurogenic fever, supportive mgmt, no focal infectious process noted (4) Acute metabolic encephalopathy Code(s): G93.41 - METABOLIC ENCEPHALOPATHY Status: Acute (5) NSTEMI (non-ST elevated myocardial infarction) Code(s): I21.4 - NON-ST ELEVATION (NSTEMI) MYOCARDIAL INFARCTION Status: Acute (6) CKD (chronic kidney disease), stage III Code(s): N18.3 - CHRONIC KIDNEY DISEASE, STAGE 3 (MODERATE) Status: Chronic - Plan PT/OT, pediatric social worker, respiratory therapy, DVT proph w/SCDs Consults: Palliative Care Continue critical support Continue mech ventilation, not weanable currently Nutritional support with Vital HP Saline lock IVF's BP mgmt General stroke protocol Palliative care AM lab: BMP, CBC, ABG Poor prognosis
[2020-04-10] MEDS: Morphine 2 MG/ML VIAL SLOW IVP PRN (14:27)
--- NOTE | 2020-04-10 22:18 | PDOC.PALPN ---
Palliative Progress Note - Subjective Intubated with mechanical ventilation, movement to right arm and right foot when and daughter talk to her. - Objective Vital Signs: Vital Signs - Most Recent Temp Pulse Resp BP Pulse Ox 99.0 F 66 20 163/78 H 96 04/10/20 20:00 04/10/20 22:14 04/10/20 22:00 04/10/20 22:14 04/10/20 20:00 - Physical Exam Constitutional: ill appearing HEENT: moist MMs, sclera anicteric Respiratory: diminished lung sound Deviation from normal: mechanical ventilation Cardiovascular: irregular Gastrointestinal: soft, non-tender Genitourinary: ac catheter Musculoskeletal: edema present Neurology: hemiplegia Skin: bruising Deviation from normal: appears oriented to self - Assessment (1) Palliative care encounter Code(s): Z51.5 - ENCOUNTER FOR PALLIATIVE CARE Current Visit: Yes Status: Acute (2) Acute metabolic encephalopathy Code(s): G93.41 - METABOLIC ENCEPHALOPATHY Current Visit: Yes Status: Acute (3) Acute respiratory failure with hypoxia Code(s): J96.01 - ACUTE RESPIRATORY FAILURE WITH HYPOXIA Current Visit: Yes Status: Acute (4) Intracerebral hemorrhage Code(s): I61.9 - NONTRAUMATIC INTRACEREBRAL HEMORRHAGE, UNSPECIFIED Current Visit: Yes Status: Acute Qualifiers: Intracerebral hemorrhage etiology: nontraumatic Laterality: right (5) NSTEMI (non-ST elevated myocardial infarction) Code(s): I21.4 - NON-ST ELEVATION (NSTEMI) MYOCARDIAL INFARCTION Current Visit : Yes Status: Acute (6) CKD (chronic kidney disease), stage III Code(s): N18.3 - CHRONIC KIDNEY DISEASE, STAGE 3 (MODERATE) Current Visit: Yes Status: Chronic - Plan Plan: Lengthy conversation with patient and daughter Diana, followed by later conversation with he and patient daughter Zully. Revisited Trach/PEG risks, need for LTAC and unknown outcome. Patient Marcos stated he wanted to decide by tomorrow, encouraged to discuss as a family what Mrs Pate would desire. Reminded them that they could revisit this weighty decision over the weekend. Answered questions. Reminded the family, to base the decision on what Mrs Pate would desire for continuation of care. Trach/Peg verses Exutbation with supportive care/ comfort measures. Please also refer to Palliative Care notes in note section. Spiritual Care consult [60] minutes spent on this encounter with >50% of the time in counseling and coordination of care. - ROS Non Response: due to endotracheal tube, due to mental status
[2020-04-11] MEDS: Propofol 1,000 MG/100 ML VIAL IV PRN ×3 (03:44→19:23)
[2020-04-11 04:28] LABS: #Eosinphils 0.1 thou/uL (0.0-0.7); #Lymphocytes 1.6 thou/uL (1.20-3.40); #Monocytes 0.8 thou/uL (0.11-0.59); #Neutrophils 8.8 thou/uL (1.40-6.50); %Basophils 0.3 % (0.0-1.0); %Eosinophils 1.2 % (0.0-10.0); %Lymphocytes 14.1 % (21.0-51.0); %Monocytes 7.2 % (0.0-10.0); %Neutrophils 77.3 % (42.0-75.0); Hemoglobin 10.6 g/dL (12.0-16.0); Mean Corpuscular Hemoglobin 29.9 pg (27.0-31.0); Mean Corpuscular Volume 93.6 fL (78.0-98.0); Mean Platelet Volume 8.5 fL (7.4-10.4); Platelet Count 245 thou/uL (130-400); RBC Distribution Width 12.4 % (11.5-14.5); Red Blood Cell (RBC) Count 3.55 mill/uL (4.20-5.40); White Blood Cell (WBC) Count 11.4 thou/uL (4.8-10.8)
[2020-04-11 04:47] LABS: Anion Gap 17 mmol/L (10-20); BUN (Urea Nitrogen) 29 mg/dL (9.8-20.1); Calc. Creatinine Clearance 108 mL/min (70-130); Calcium 8.8 mg/dL (7.8-10.44); Carbon Dioxide 24 mmol/L (23-31); Chloride 103 mmol/L (98-107); Estimated GFR-MDRD 75; Glucose 179 mg/dL (83-110); Potassium 3.8 mmol/L (3.5-5.1); Sodium 140 mmol/L (136-145)
--- NOTE | 2020-04-11 06:59 | PRG ---
DATE OF SERVICE: 04/11/2020 35 minutes critical time. SUBJECTIVE: The patient remains intubated on mechanical ventilation. She will follow commands with the right hand and right leg. She will not open her eyes, could not move her left side. OBJECTIVE: VITAL SIGNS: Temperature 99.4, pulse 67, blood pressure 143/75, O2 saturation 93%. Her maximum temperature yesterday was 102. Intake output 1650. HEENT: Unremarkable. NECK: No JVD. LUNGS: Coarse breath sounds. CARDIAC: S1 and S2. Regular. ABDOMEN: Soft. EXTREMITIES: No edema. LABORATORY DATA: White count 11.4, hematocrit 33.2, and platelet count 245. ABG pending. Sodium 140, potassium 3.8, chloride 130, CO2 of 24, BUN 29, creatinine 0.7, glucose 179. ASSESSMENT: 1. Acute respiratory failure, requiring mechanical ventilation. 2. Brain hemorrhage/stroke. Left-sided hemiparesis. 3. Underlying severe chronic obstructive pulmonary disease. PLAN: I discussed with family yesterday and I will discuss with them again today. They really having a hard time deciding about whether to proceed with tracheostomy and feeding tube placement. I think if they want to press forward, that those interventions will have to be performed. Otherwise, I cannot guarantee that. She will be able to keep secretions clear from her airway. It is presumed right now that her fever is from the brain bleed. Cultures were drawn yesterday. We will institute antibiotics if any organisms are found. Job ID: [id number]
--- NOTE | 2020-04-11 07:36 | PRG ---
DATE OF SERVICE: 04/11/2020 : Ms. Pate is starting her 7th hospital day with us. I saw Ms. Pate in the ICU this morning. I discussed the case briefly with Dr. Hadley Meraz, who is also at the bedside. No events were reported overnight. Among the electronically recorded vital signs, the greatest temperature I saw was 100.8 degrees Fahrenheit. Blood pressures have ranged between the 140s and 170s. When I examined her, Ms. Pate was getting 20 mcg of propofol up from 3 to 4 in the past few days. Her total fluid in was trending above the 2000 mL limit, we wanted for the day. In spite of these, she is able to respond to commands for me today. She wiggled her toes quite easily. She squeezed my hand. She held up two fingers. The left leg withdraws, and the left arm is not moving. All of these findings are stable. The sodium this morning is 140. White blood cell count has gone up from 9 to 11.4. I was asked yesterday about the final outcome of Ms. Pate. I think with supportive care, she will recover from her hemorrhage. She will be left with some weakness on the left side that could be a rather dense hemiparesis, but many people function in that state with a stiff leg to walk on and a flexed arm. Because it is not her nondominant hemisphere, I think her language function will be preserved, and she will likely be able to engage in conversation and participate in her own care rather than being dependent. However, all these presupposes good underlying medical condition. No pneumonia, no infection, no sepsis, no DVT intervening between now and her recovery. (15 minutes) Job ID: [id number] MTDD
--- NOTE | 2020-04-11 07:40 | RAD ---
XR Chest 1 View Portable History: Pneumonia Comparison: Radiograph prior day Findings: Endotracheal tube tip sits above the zeinab 4 cm. Moderate layering pleural effusions. Comp ressive atelectasis within both lower lobes. Enteric tube tip below diaphragm although out of field of view. No pneumothorax. Impression: Similar appearance of the chest.
[2020-04-11] MEDS: Acetaminophen 325 MG TAB PO PRN (07:56)
[2020-04-11] MEDS: Morphine 2 MG/ML VIAL SLOW IVP PRN (07:56)
[2020-04-11] MEDS: Pantoprazole 40 MG GRANULES PACKET PER TUBE SCH (07:56)
[2020-04-11] MEDS: Metoprolol Tartrate 50 MG TAB PER TUBE SCH ×2 (07:57→20:56)
--- NOTE | 2020-04-11 17:40 | PDOC.HOSPP ---
- Subjective Encounter Date: 04/11/20 Encounter Time: 17:30 Subjective: f/u for intracerebral hemorrhage on current [facility] ventilation with L hemiparesis. Following some commands on R side but not opening eyes. Family contemplating Trach/PEG but undecided currently. - Objective Vital Signs & Weight: Vital Signs (12 hours) Temp Pulse Pulse Pulse Resp BP BP 04/11/20 16:00 99.9 F H 04/11/20 15:43 22 H 04/11/20 15:10 69 150/85 H 04/11/20 14:00 24 H 04/11/20 13:08 79 137/71 04/11/20 12:00 98.9 F 24 H 04/11/20 11:12 61 04/11/20 10:00 24 H 04/11/20 09:50 96 68 129/61 04/11/20 08:00 98.8 F 04/11/20 07:46 72 153/66 H 04/11/20 07:32 04/11/20 07:29 24 H 04/11/20 06:00 23 H BP Pulse Ox Pulse Ox Pulse Ox 04/11/20 16:00 04/11/20 15:43 04/11/20 15:10 04/11/20 14:00 04/11/20 13:08 04/11/20 12:00 04/11/20 11:12 04/11/20 10:00 04/11/20 09:50 130/62 94 L 93 L 04/11/20 08:00 04/11/20 07:46 04/11/20 07:32 92 L 04/11/20 07:29 04/11/20 06:00 Weight Admit Weight 224 lb Weight 223 lb 15.834 oz Most Recent Monitor Data Heart Rate from ECG 75 NIBP 145/67 NIBP BP-Mean 93 Respiration from ECG 23 SpO2 94 I&O: 04/10/20 04/11/20 04/12/20 06:59 06:59 06:59 Intake Total 2009 6856 364 Output Total 3715 8161 412 Balance -1305 -10 -500 Result Diagrams: 04/11/20 03:15 04/11/20 03:15 Additional Labs: Microbiology 04/05/20 19:38 Urine ac catheter Urine Culture - Final NO GROWTH AT 36 HOURS 04/09/20 19:05 Venous blood - Right Arm Blood Culture - Preliminary Specimen has been received and culture in progress. No Growth to date. 04/09/20 18:28 Picc Line - Left Brachiocephalic vein Blood Culture - Preliminary Specimen has been received and culture in progress. No Growth to date. 04/05/20 19:38 Urine ac catheter Urine Culture - Preliminary NO GROWTH AT 12 HOURS 04/05/20 18:34 Venous blood - Right Hand Blood Culture - Preliminary Specimen has been received and culture in progress. No Growth to date. 04/05/20 18:34 Venous blood - Right Hand Blood Culture - Preliminary NO GROWTH AT 48 HOURS 04/05/20 18:33 Venous blood - Left Hand Blood Culture - Preliminary Specimen has been received and culture in progress. No Growth to date. 04/05/20 18:33 Venous blood - Left Hand Blood Culture - Preliminary NO GROWTH AT 48 HOURS Laboratory Tests 10/23/19 04/05/20 04/05/20 11:07 18:34 18:34 WBC Neutrophils % Neutrophils % (Manual) Potassium 3.5 Troponin I 3.403 H* TSH 3rd Generation 0.2347 L COVID-19 PCR 04/05/20 04/05/20 04/05/20 18:34 18:34 19:54 WBC 14.7 H Neutrophils % 85.6 H Neutrophils % (Manual) Potassium Troponin I TSH 3rd Generation 0.1456 L COVID-19 PCR Not Detected 04/06/20 04/06/20 04/07/20 06:24 06:24 03:14 WBC 12.5 H Neutrophils % Neutrophils % (Manual) 70 77 H Potassium 3.4 L Troponin I TSH 3rd Generation COVID-19 PCR 04/07/20 09:16 WBC Neutrophils % Neutrophils % (Manual) Potassium Troponin I 1.029 H* TSH 3rd Generation COVID-19 PCR Radiology Reviewed by me: Yes (PCXR - ETT in position, bibasilar atelectasis/ effusion) EKG Reviewed by me: Yes (Tele - SR) Hospitalist ROS - Medication Medications: Active Medications Generic Name Dose Route Start Last Admin Trade Name Freq PRN Reason Stop Dose Admin Acetaminophen 650 mg 04/05/20 19:30 04/11/20 07:56 Tylenol PO 650 mg Q6H PRN Administration Fever > 101 or Headache Albuterol/Ipratropium 3 ml 04/07/20 13:00 04/11/20 13:08 Duoneb NEB 3 ml [id number] ANUSHKA Administration Hydralazine HCl 5 mg 04/05/20 19:35 04/10/20 22:14 Apresoline SLOW IVP 5 mg Q4H PRN Administration SBP >140 Levetiracetam 500 mg/ Device 100 mls @ 200 mls/hr 04/05/20 21:00 04/11/20 07: 57 IVPB 100 mls BID ANUSHKA Administration Labetalol HCl 10 mg 04/05/20 19:30 04/10/20 05:04 Normodyne SLOW IVP 10 mg Q2H PRN Administration SBP > 140 Metoprolol Tartrate 50 mg 04/07/20 21:00 04/11/20 07:57 Lopressor PER TUBE 50 mg BID ANUSHKA Administration Morphine Sulfate 2 mg 04/05/20 22:26 04/11/20 07:56 Morphine SLOW IVP 05/05/20 22:26 2 mg Q1H PRN Administration Breakthrough Pain/Agitation Pantoprazole Sodium 40 mg 04/10/20 09:00 04/11/20 07:56 Protonix PER TUBE 40 mg DAILY ANUSHKA Administration Propofol 1,000 mg 04/05/20 22:26 04/11/20 11:07 Diprivan IV 05/05/20 22:26 1,000 mg INF PRN Administration TO ACHIEVE GOAL RASS Protocol - Exam General - other findings: follows some commands with RU/LE's Eye: PERRL, anicteric sclera ENT: normocephalic atraumatic, no oropharyngeal lesions Neck: supple, symmetric, no JVD, no thyromegaly, no lymphadenopathy Heart: RRR, no gallops, no rubs, normal peripheral pulses Heart - other findings: S1, S2 Respiratory: no wheezes, no tachypnea Respiratory - other findings: diminished in bases bilaterally Gastrointestinal: soft, non-tender, non-distended, normal bowel sounds, no palpable masses Extremities: no cyanosis, no clubbing Skin: normal turgor, no lesions Neurological - other findings: Follows hot cell technician with R hand, moving RU/LE, L hemiparesis Musculoskeletal: generalized weakness Psychiatric: oriented to person, somnolent Hosp A/P (1) Intracerebral hemorrhage Code(s): I61.9 - NONTRAUMATIC INTRACEREBRAL HEMORRHAGE, UNSPECIFIED Status: Acute Qualifiers: Intracerebral hemorrhage etiology: nontraumatic Laterality: right Plan: Continue routine ICH per protocol, PT/OT/SHREDDER PICKER (2) Acute respiratory failure with hypoxia Code(s): J96.01 - ACUTE RESPIRATORY FAILURE WITH HYPOXIA Status: Acute Plan: [facility], no weanable currently, family contemplating Trach/ PEG (3) Febrile Code(s): R50.9 - FEVER, UNSPECIFIED Status: Acute Plan: Neurogenic febrile syndrome (4) Acute metabolic encephalopathy Code(s): G93.41 - METABOLIC ENCEPHALOPATHY Status: Acute (5) NSTEMI (non-ST elevated myocardial infarction) Code(s): I21.4 - NON-ST ELEVATION (NSTEMI) MYOCARDIAL INFARCTION Status: Acute (6) CKD (chronic kidney disease), stage III Code(s): N18.3 - CHRONIC KIDNEY DISEASE, STAGE 3 (MODERATE) Status: Chronic - Plan PT/OT, social insurance analyst, respiratory therapy, DVT proph w/SCDs Consults: Palliative Care Continue critical support Continue mech ventilation, not weanable currently Nutritional support with Vital HP Saline lock IVF's BP mgmt General stroke protocol Palliative care AM lab: BMP, CBC, ABG Poor prognosis
[2020-04-12] MEDS: Propofol 1,000 MG/100 ML VIAL IV PRN ×3 (02:20→18:21)
[2020-04-12 04:50] LABS: #Eosinphils 0.4 thou/uL (0.0-0.7); #Lymphocytes 1.5 thou/uL (1.20-3.40); #Monocytes 0.7 thou/uL (0.11-0.59); #Neutrophils 6.3 thou/uL (1.40-6.50); %Basophils 0.5 % (0.0-1.0); %Eosinophils 4.3 % (0.0-10.0); %Lymphocytes 16.5 % (21.0-51.0); %Monocytes 7.8 % (0.0-10.0); %Neutrophils 70.9 % (42.0-75.0); Hemoglobin 10.6 g/dL (12.0-16.0); Mean Corpuscular HGB CONC 32.7 g/dL (32.0-36.0); Mean Corpuscular Hemoglobin 30.6 pg (27.0-31.0); Mean Corpuscular Volume 93.5 fL (78.0-98.0); Mean Platelet Volume 7.6 fL (7.4-10.4); Platelet Count 245 thou/uL (130-400); RBC Distribution Width 12.3 % (11.5-14.5); Red Blood Cell (RBC) Count 3.45 mill/uL (4.20-5.40); White Blood Cell (WBC) Count 8.9 thou/uL (4.8-10.8)
[2020-04-12 05:06] LABS: Anion Gap 14 mmol/L (10-20); BUN (Urea Nitrogen) 25 mg/dL (9.8-20.1); Calc. Creatinine Clearance 113 mL/min (70-130); Calcium 8.7 mg/dL (7.8-10.44); Carbon Dioxide 26 mmol/L (23-31); Chloride 102 mmol/L (98-107); Estimated GFR-MDRD 80; Glucose 156 mg/dL (83-110); Potassium 3.6 mmol/L (3.5-5.1); Sodium 138 mmol/L (136-145)
--- NOTE | 2020-04-12 08:13 | PRG ---
DATE OF SERVICE: 04/12/2020 A 35 minutes critical care time. SUBJECTIVE: The patient remains intubated on mechanical ventilation. There has been no acute changes overnight. OBJECTIVE: VITAL SIGNS: Temperature is 99.1, pulse 87, blood pressure 117/58, and O2 saturation 95%. Her highest temperature yesterday was 100.7. 24-hour intake was 1423, output 1530. HEENT: She will not open eyes to commands. She is intubated orally. NECK: No adenopathy or JVD. CHEST: Clear to auscultation. CARDIAC: S1 and S2. Regular. ABDOMEN: Soft and nontender. EXTREMITIES: No edema. NEUROLOGIC: She continues to move her right side to command. She will not move her left side. LABORATORY DATA: White blood cell count 8.9, hematocrit 32.2, and platelet count 245. Sodium 138, potassium 3.6, chloride 102, CO2 of 26, BUN 25, creatinine 0.7, and glucose 156. Chest x-ray shows no acute change. Micro cultures show no growth to date. ASSESSMENT: 1. Acute respiratory failure requiring mechanical ventilation. 2. Brain hemorrhage with left-sided hemiparesis. 3. Underlying chronic obstructive pulmonary disease. PLAN: I discussed with the patient's 2 daughters yesterday over conference call about her situation and prognosis. They feel fairly adamantly that the patient would not want tracheostomy performed. Unfortunately, there seems to be some disagreement between how the daughters want to proceed and how the wants to proceed, so I think it will be best to give them some more time to get on the same page. She is not weanable at this time. We will continue supportive care with tube feeds. I am withholding antibiotics until something grows cultures. Job ID: [id number]
[2020-04-12] MEDS: Pantoprazole 40 MG GRANULES PACKET PER TUBE SCH (09:13)
[2020-04-12] MEDS: Metoprolol Tartrate 50 MG TAB PER TUBE SCH ×2 (09:13→20:56)
--- NOTE | 2020-04-12 09:21 | RAD ---
PORTABLE CHEST: Date: 04/12/2020 HISTORY: Pneumonia. COMPARISON: 04/11/2020. FINDINGS: ET tube is in place. Bilateral effusions and bibasilar infiltrates and/or atelectasis again noted and unchanged. The upper lung tracy are clear and stable in appearance. IMPRESSION: No significant interval change. POS: AGW
--- NOTE | 2020-04-12 12:35 | PDOC.HOSPP ---
- Subjective Encounter Date: 04/12/20 Encounter Time: 12:33 Subjective: Ms. Pate was seen today in follow-up of respiratory failure. She remain intubated. She will respond by lifting her finger. - Objective Vital Signs & Weight: Vital Signs (12 hours) Temp Pulse Resp BP Pulse Ox 04/12/20 10:22 105 H 115/64 04/12/20 06:00 21 H 04/12/20 05:22 94 25 H 97 04/12/20 05:00 99.1 F 04/12/20 02:00 19 Weight Admit Weight 224 lb Weight 223 lb 1.725 oz Most Recent Monitor Data Heart Rate from ECG 78 NIBP 127/66 NIBP BP-Mean 86 Respiration from ECG 19 SpO2 96 I&O: 04/11/20 04/12/20 04/13/20 06:59 06:59 06:59 Intake Total 1640 1423 Output Total 1650 1530 Balance -10 -107 Result Diagrams: 04/12/20 04:30 04/12/20 04:30 Hospitalist ROS - Medication Medications: Active Medications Generic Name Dose Route Start Last Admin Trade Name Freq PRN Reason Stop Dose Admin Acetaminophen 650 mg 04/05/20 19:30 04/11/20 07:56 Tylenol PO 650 mg Q6H PRN Administration Fever > 101 or Headache Albuterol/Ipratropium 3 ml 04/07/20 13:00 04/12/20 05:22 Duoneb NEB 3 ml [id number] ANUSHKA Administration Hydralazine HCl 5 mg 04/05/20 19:35 04/10/20 22:14 Apresoline SLOW IVP 5 mg Q4H PRN Administration SBP >140 Levetiracetam 500 mg/ Device 100 mls @ 200 mls/hr 04/05/20 21:00 04/12/20 09: 13 IVPB 100 mls BID ANUSHKA Administration Labetalol HCl 10 mg 04/05/20 19:30 04/10/20 05:04 Normodyne SLOW IVP 10 mg Q2H PRN Administration SBP > 140 Metoprolol Tartrate 50 mg 04/07/20 21:00 04/12/20 09:13 Lopressor PER TUBE 50 mg BID ANUSHKA Administration Morphine Sulfate 2 mg 04/05/20 22:26 04/11/20 07:56 Morphine SLOW IVP 05/05/20 22:26 2 mg Q1H PRN Administration Breakthrough Pain/Agitation Pantoprazole Sodium 40 mg 04/10/20 09:00 04/12/20 09:13 Protonix PER TUBE 40 mg DAILY ANUSHKA Administration Propofol 1,000 mg 04/05/20 22:26 04/12/20 10:48 Diprivan IV 05/05/20 22:26 1,000 mg INF PRN Administration TO ACHIEVE GOAL RASS Protocol - Exam Eye: PERRL, anicteric sclera Heart: RRR, no murmur, no gallops, no rubs, normal peripheral pulses Respiratory: CTAB (+ coarse breath sounds) Gastrointestinal: soft, non-tender, non-distended, normal bowel sounds, no palpable masses Extremities: no cyanosis, no edema Hosp A/P (1) Acute respiratory failure with hypoxia Code(s): J96.01 - ACUTE RESPIRATORY FAILURE WITH HYPOXIA Status: Acute (2) Intracerebral hemorrhage Code(s): I61.9 - NONTRAUMATIC INTRACEREBRAL HEMORRHAGE, UNSPECIFIED Status: Acute Qualifiers: Intracerebral hemorrhage etiology: nontraumatic Laterality: right (3) CKD (chronic kidney disease), stage III Code(s): N18.3 - CHRONIC KIDNEY DISEASE, STAGE 3 (MODERATE) Status: Chronic - Plan * Acute respiratory failure with hypoxemia- She is not yet weanable from the Ventilator * Family will decide on trach and PEG placement * ICH- she has been left with left hemiparesis * CKD- stable
--- NOTE | 2020-04-12 13:23 | PRG ---
DATE OF SERVICE: 04/12/2020 Ms. Pate continues to remain neurologically stable following commands on the right side. She is a week into her hospitalization. The family continues to discuss trach and PEG options. We will reduce her neuro checks given her stability. Job ID: [id number]
[2020-04-13] MEDS: Propofol 1,000 MG/100 ML VIAL IV PRN ×3 (02:25→20:04)
[2020-04-13] MEDS: Acetaminophen 650 MG/20.3 ML UDCUP PO PRN ×2 (03:08→16:38)
[2020-04-13 03:59] LABS: #Basophils 0.1 thou/uL (0.0-0.2); #Eosinphils 0.3 thou/uL (0.0-0.7); #Monocytes 0.7 thou/uL (0.11-0.59); #Neutrophils 6.7 thou/uL (1.40-6.50); %Basophils 0.6 % (0.0-1.0); %Eosinophils 3.5 % (0.0-10.0); %Lymphocytes 11.7 % (21.0-51.0); %Monocytes 8.2 % (0.0-10.0); Hemoglobin 10.5 g/dL (12.0-16.0); Mean Corpuscular HGB CONC 32.4 g/dL (32.0-36.0); Mean Corpuscular Hemoglobin 30.2 pg (27.0-31.0); Mean Corpuscular Volume 93.3 fL (78.0-98.0); Mean Platelet Volume 7.6 fL (7.4-10.4); Platelet Count 259 thou/uL (130-400); RBC Distribution Width 12.2 % (11.5-14.5); Red Blood Cell (RBC) Count 3.47 mill/uL (4.20-5.40); White Blood Cell (WBC) Count 8.8 thou/uL (4.8-10.8)
[2020-04-13 04:20] LABS: Anion Gap 14 mmol/L (10-20); BUN (Urea Nitrogen) 25 mg/dL (9.8-20.1); Calc. Creatinine Clearance 113 mL/min (70-130); Calcium 8.5 mg/dL (7.8-10.44); Carbon Dioxide 24 mmol/L (23-31); Chloride 101 mmol/L (98-107); Estimated GFR-MDRD 80; Glucose 184 mg/dL (83-110); Potassium 3.3 mmol/L (3.5-5.1); Sodium 136 mmol/L (136-145)
[2020-04-13] MEDS ORDERED: Potassium Chloride 40 MEQ in Premix Bag 1 BAG IVPB SCH (04:30)
[2020-04-13] MEDS ORDERED: Potassium Chloride 40 MEQ in Sodium Chloride 0.9% 250 ML 250 ML IVPB SCH (06:00)
--- NOTE | 2020-04-13 08:24 | RAD ---
PORTABLE CHEST: INDICATIONS: Pneumonia followup. COMPARISON: 04/12/20 FINDINGS: ET tube remains in place. Hazy bibasilar infiltrates appear stable. Cardiomegaly. Vascular markings w ithin the normal range. IMPRESSION: No acute interval change. POS: AGW
[2020-04-13] MEDS: Metoprolol Tartrate 50 MG TAB PER TUBE SCH ×2 (08:45→20:04)
[2020-04-13] MEDS: Pantoprazole 40 MG GRANULES PACKET PER TUBE SCH (08:45)
--- NOTE | 2020-04-13 09:24 | PDOC.HOSPP ---
- Subjective Encounter Date: 04/13/20 Encounter Time: 09:21 Subjective: Ms. Pate was seen today in follow-up of ICH and respiratory failure. She remains intubated. She is moving her right extremities. She still will not follow commands consistently. - Objective Vital Signs & Weight: Vital Signs (12 hours) Temp Pulse Resp BP Pulse Ox 04/13/20 08:00 99.0 F 04/13/20 07:15 95 100/54 L 04/13/20 06:00 20 04/13/20 04:00 99.9 F H 18 04/13/20 03:00 101.6 F H 04/13/20 02:00 25 H 04/13/20 00:00 100.3 F H 23 H 04/12/20 23:15 78 22 H 96 04/12/20 22:00 22 H Weight Admit Weight 224 lb Weight 222 lb 10.67 oz Most Recent Monitor Data Heart Rate from ECG 85 NIBP 147/57 NIBP BP-Mean 87 Respiration from ECG 24 SpO2 93 I&O: 04/12/20 04/13/20 04/14/20 06:59 06:59 06:59 Intake Total 1423 1605 Output Total 1530 1520 175 Balance -107 85 -175 Result Diagrams: 04/13/20 03:46 04/13/20 03:30 Hospitalist ROS - Medication Medications: Active Medications Generic Name Dose Route Start Last Admin Trade Name Freq PRN Reason Stop Dose Admin Acetaminophen 650 mg 04/13/20 03:00 04/13/20 03:08 Tylenol Elixir PO 650 mg Q6H PRN Administration Fever > 101 or Headache Albuterol/Ipratropium 3 ml 04/07/20 13:00 04/13/20 07:14 Duoneb NEB 3 ml [id number] ANUSHKA Administration Hydralazine HCl 5 mg 04/05/20 19:35 04/10/20 22:14 Apresoline SLOW IVP 5 mg Q4H PRN Administration SBP >140 Levetiracetam 500 mg/ Device 100 mls @ 200 mls/hr 04/05/20 21:00 04/13/20 08: 45 IVPB 100 mls BID ANUSHKA Administration Potassium Chloride 40 meq/ 270 mls @ 67.5 mls/hr 04/13/20 06:00 04/13/20 05: 20 Sodium Chloride IVPB 04/13/20 09:59 270 mls 0600 ANUSHKA Administration Labetalol HCl 10 mg 04/05/20 19:30 04/10/20 05:04 Normodyne SLOW IVP 10 mg Q2H PRN Administration SBP > 140 Metoprolol Tartrate 50 mg 04/07/20 21:00 04/13/20 08:45 Lopressor PER TUBE 50 mg BID ANUSHKA Administration Morphine Sulfate 2 mg 04/05/20 22:26 04/11/20 07:56 Morphine SLOW IVP 05/05/20 22:26 2 mg Q1H PRN Administration Breakthrough Pain/Agitation Pantoprazole Sodium 40 mg 04/10/20 09:00 04/13/20 08:45 Protonix PER TUBE 40 mg DAILY ANUSHKA Administration Propofol 1,000 mg 04/05/20 22:26 04/13/20 02:25 Diprivan IV 05/05/20 22:26 1,000 mg INF PRN Administration TO ACHIEVE GOAL RASS Protocol - Exam Eye: PERRL, anicteric sclera Heart: RRR, no murmur, no gallops, no rubs, normal peripheral pulses Respiratory: CTAB, no wheezes, no rales, no ronchi Gastrointestinal: soft, non-tender, non-distended, normal bowel sounds, no palpable masses, no hepatomegaly Extremities: no cyanosis, 1+ LE edema Hosp A/P (1) Acute respiratory failure with hypoxia Code(s): J96.01 - ACUTE RESPIRATORY FAILURE WITH HYPOXIA Status: Acute (2) Intracerebral hemorrhage Code(s): I61.9 - NONTRAUMATIC INTRACEREBRAL HEMORRHAGE, UNSPECIFIED Status: Acute Qualifiers: Intracerebral hemorrhage etiology: nontraumatic Laterality: right (3) CKD (chronic kidney disease), stage III Code(s): N18.3 - CHRONIC KIDNEY DISEASE, STAGE 3 (MODERATE) Status: Chronic - Plan * Acute respiratory failure with hypoxemia- Continue support with mechanical ventilation * Family will decide on trach and PEG placement * ICH- with left hemiparesis- PT/OT as tolerated * CKD- stable
--- NOTE | 2020-04-13 10:12 | PRG ---
DATE OF SERVICE: 04/13/2020 A 35 minutes critical care time. SUBJECTIVE: She remains intubated on mechanical ventilation. She was given a sedation vacation today. She can move her right arm to command and I could not get her to do much with the right leg today. She is not moving her left side at all. OBJECTIVE: VITAL SIGNS: Her T-max is 101.6, current temperature 99.9, pulse 86, blood pressure 107/57, and O2 saturation 95%. HEENT: Unremarkable. NECK: No JVD. CHEST: Clear anteriorly. CARDIAC: S1 and S2. Regular. ABDOMEN: Soft. EXTREMITIES: No edema. LABORATORY DATA: Cultures are still sterile. White blood cell count 8.8, hematocrit 32.4, and platelet count 259 with no bands. Sodium 136, potassium 3.3, chloride 101, CO2 of 24, BUN 25, creatinine 0.7, and glucose 184. Chest x-ray shows no significant change. ASSESSMENT: 1. Intraventricular hemorrhage. 2. Left-sided hemiparesis. 3. Respiratory failure requiring mechanical ventilation. 4. Underlying severe chronic obstructive pulmonary disease. 5. Fever, which I think is probably secondary to intracranial bleed. PLAN: 1. Continuing supportive care with mechanical ventilation. 2. With holding antibiotics until there was some indication of infection. 3. Family is wrestling with a decision of whether to have her undergo tracheostomy feeding tube placement or going to a palliative type mode. 4. Replace potassium. Job ID: [id number]
[2020-04-13 12:13] LABS: Potassium 4.7 mmol/L (3.5-5.1)
[2020-04-13] MEDS: Morphine 2 MG/ML VIAL SLOW IVP PRN (16:36)
[2020-04-14] MEDS: Propofol 1,000 MG/100 ML VIAL IV PRN (04:01)
[2020-04-14 04:36] LABS: #Eosinphils 0.4 thou/uL (0.0-0.7); #Monocytes 0.6 thou/uL (0.11-0.59); #Neutrophils 7.4 thou/uL (1.40-6.50); %Basophils 0.4 % (0.0-1.0); %Eosinophils 4.6 % (0.0-10.0); %Lymphocytes 10.3 % (21.0-51.0); %Monocytes 6.7 % (0.0-10.0); Hemoglobin 10.3 g/dL (12.0-16.0); Mean Corpuscular HGB CONC 31.5 g/dL (32.0-36.0); Mean Corpuscular Hemoglobin 29.4 pg (27.0-31.0); Mean Corpuscular Volume 93.3 fL (78.0-98.0); Platelet Count 282 thou/uL (130-400); RBC Distribution Width 12.3 % (11.5-14.5); Red Blood Cell (RBC) Count 3.51 mill/uL (4.20-5.40); White Blood Cell (WBC) Count 9.5 thou/uL (4.8-10.8)
[2020-04-14 04:58] LABS: Anion Gap 14 mmol/L (10-20); BUN (Urea Nitrogen) 29 mg/dL (9.8-20.1); Calc. Creatinine Clearance 108 mL/min (70-130); Calcium 8.6 mg/dL (7.8-10.44); Carbon Dioxide 25 mmol/L (23-31); Chloride 103 mmol/L (98-107); Estimated GFR-MDRD 76; Glucose 168 mg/dL (83-110); Potassium 3.8 mmol/L (3.5-5.1); Sodium 138 mmol/L (136-145)
[2020-04-14] MEDS: Acetaminophen 650 MG/20.3 ML UDCUP PO PRN ×2 (05:33→20:52)
--- NOTE | 2020-04-14 07:58 | RAD ---
CHEST 1 VIEW PORTABLE: HISTORY: Followup pneumonia. COMPARISON: 04/13/2020. FINDINGS: Rotation to the left. Cardiomegaly with bilateral pleural effusions and mild vascular congestion. N G tube and endotracheal tubes in position. Overall stable exam. IMPRESSION: Stable vascular congestion, small pleural effusions, and cardiomegaly. Continue short-term followup. POS: OFF
--- NOTE | 2020-04-14 08:21 | PRG ---
DATE OF SERVICE: 04/14/2020 35 minutes critical care time. SUBJECTIVE: The patient remains intubated on mechanical ventilation. No acute changes overnight. OBJECTIVE: VITAL SIGNS: Temperature 100.6, pulse 104, blood pressure 117/63. 24-hour intake 1433, output 1240. HEENT: Unremarkable. NECK: No adenopathy or JVD. LUNGS: Fairly clear anteriorly. CARDIAC: S1, S2. Slightly tachycardic. ABDOMEN: Soft. EXTREMITIES: No edema. LABORATORY DATA: White blood cell count 9.5, hematocrit 32.8, and platelet count 282. ABGs not done today. Sodium 138, potassium 3.8, chloride 103, CO2 of 25, BUN 29, creatinine 0.7, glucose 168. ASSESSMENT: 1. Acute respiratory failure requiring mechanical ventilation. 2. Huge right-sided intracranial hemorrhage. 3. Dense left-sided hemiparesis. 4. Underlying chronic obstructive pulmonary disease. PLAN: At this point, awaiting family decision on how they want to proceed. Otherwise, we are continuing supportive care with mechanical ventilation. PROGNOSIS: Extremely poor for functional recovery. I will go ahead and stop the propofol as the patient appears to be excessively sedated. We can use Ativan as needed for breakthrough agitation. Job ID: [id number]
[2020-04-14] MEDS: hydrALAZINE 20 MG/ML VIAL SLOW IVP PRN ×3 (08:41→17:42)
--- NOTE | 2020-04-14 08:43 | ULT ---
EXAM: Right upper extremity venous Doppler HISTORY: Right arm swelling/edema. FINDINGS: Grayscale, color-flow, Doppler evaluation, spectral analysis of the right upper extremity venous stru ctures is performed with 2-D imaging. Normal flow is demonstrated in the right subclavian vein. There is normal luminal compressibility and flow present in the right internal jugular, axillary, brachial, radial, and ulnar veins. Normal luminal compressibility and flow is seen in the right upper extremity cephalic and basilic veins. IMPRESSION: No evidence of a deep vein thrombosis in the visualized deep venous structures right upper extremity.
--- NOTE | 2020-04-14 08:43 | ULT ---
ULTRASOUND BILATERAL LOWER EXTREMITY VENOUS DOPPLER: HISTORY: Risk for a DVT. Immobility. COMPARISON: None. FINDINGS: Real-time, guo scale, color Doppler, and spectral analysis bilateral lower extremity venous system w as performed. The common femoral, femoral, proximal portion, greater saphenous, and deep femoral vei ns as well as the popliteal and posterior tibial veins were interrogated. In the right lower extremity, there is normal flow, augmentation, and compression. There is thrombu s within the left deep femoral vein with partial extension of thrombus into the common femoral vein. IMPRESSION: Left deep femoral venous thrombosis with partial extension into the common femoral vein without flow limitation of the left common femoral vein. Dr. Hadley Rucker was [place] [facility] texted at 8:39 a.m. CODE CR POS: [facility]
--- NOTE | 2020-04-14 08:57 | PDOC.HOSPP ---
- Subjective Encounter Date: 04/14/20 Encounter Time: 08:55 Subjective: Ms. Pate was seen today in follow-up of respiratory failure and ICH. She remains intubated. She will follow some simple commands. - Objective Vital Signs & Weight: Vital Signs (12 hours) Temp Pulse Resp BP Pulse Ox 04/14/20 07:22 103 H 106/56 L 04/14/20 06:00 30 H 04/14/20 04:00 100.6 F H 28 H 04/14/20 02:00 28 H 04/14/20 00:00 27 H 04/13/20 23:30 88 28 H 94 L 04/13/20 22:00 22 H Weight Admit Weight 224 lb Weight 223 lb 5.252 oz Most Recent Monitor Data Heart Rate from ECG 101 NIBP 136/57 NIBP BP-Mean 83 Respiration from ECG 27 SpO2 94 I&O: 04/13/20 04/14/20 04/15/20 06:59 06:59 06:59 Intake Total 1605 1433 Output Total 1520 1240 Balance 85 193 Result Diagrams: 04/14/20 04:10 04/14/20 04:10 Hospitalist ROS - Medication Medications: Active Medications Generic Name Dose Route Start Last Admin Trade Name Freq PRN Reason Stop Dose Admin Acetaminophen 650 mg 04/13/20 03:00 04/14/20 05:33 Tylenol Elixir PO 650 mg Q6H PRN Administration Fever > 101 or Headache Albuterol/Ipratropium 3 ml 04/07/20 13:00 04/14/20 07:22 Duoneb NEB 3 ml [id number] ANUSHKA Administration Hydralazine HCl 5 mg 04/05/20 19:35 04/10/20 22:14 Apresoline SLOW IVP 5 mg Q4H PRN Administration SBP >140 Levetiracetam 500 mg/ Device 100 mls @ 200 mls/hr 04/05/20 21:00 04/13/20 20: 04 IVPB 100 mls BID ANUSHKA Administration Labetalol HCl 10 mg 04/05/20 19:30 04/10/20 05:04 Normodyne SLOW IVP 10 mg Q2H PRN Administration SBP > 140 Metoprolol Tartrate 50 mg 04/07/20 21:00 04/13/20 20:04 Lopressor PER TUBE 50 mg BID NAUSHKA Administration Pantoprazole Sodium 40 mg 04/10/20 09:00 04/13/20 08:45 Protonix PER TUBE 40 mg DAILY ANUSHKA Administration - Exam Eye: PERRL, anicteric sclera Heart: RRR, no murmur, no gallops, no rubs, normal peripheral pulses Respiratory: CTAB, no wheezes, no rales, no ronchi Gastrointestinal: soft, non-tender, non-distended, normal bowel sounds, no palpable masses, no hepatomegaly Extremities: 1+ LE edema (+ trace edema in both lower extremities, and massive swelling in the left upper extremity, with bullous lesion in the hands, good radial and ulnar pulses) Hosp A/P (1) Acute respiratory failure with hypoxia Code(s): J96.01 - ACUTE RESPIRATORY FAILURE WITH HYPOXIA Status: Acute (2) Intracerebral hemorrhage Code(s): I61.9 - NONTRAUMATIC INTRACEREBRAL HEMORRHAGE, UNSPECIFIED Status: Acute Qualifiers: Intracerebral hemorrhage etiology: nontraumatic Laterality: right (3) CKD (chronic kidney disease), stage III Code(s): N18.3 - CHRONIC KIDNEY DISEASE, STAGE 3 (MODERATE) Status: Chronic (4) Left leg DVT Code(s): I82.402 - ACUTE EMBOLISM AND THOMBOS UNSP DEEP VEINS OF L LOW EXTREM Status: Acute - Plan * Acute respiratory failure with hypoxemia- Continue support with mechanical ventilation * Family will decide on trach and PEG placement * Left lower extremity DVT-unable to anticoagulate due to ICH. Will consider CV surgery consult for IVC filter, if the family decides on continuing aggressive management * ICH- with left hemiparesis- PT/OT as tolerated * CKD- stable
[2020-04-14] MEDS: Pantoprazole 40 MG GRANULES PACKET PER TUBE SCH (08:58)
[2020-04-14] MEDS: Metoprolol Tartrate 50 MG TAB PER TUBE SCH ×2 (08:58→20:52)
--- NOTE | 2020-04-14 12:32 | ULT ---
LEFT UPPER EXTREMITY VENOUS DOPPLER ULTRASOUND: HISTORY: Swelling/edema in the left arm TECHNIQUE: Grayscale color-flow and spectral Doppler imaging of the deep venous systems of the left upper extrem ity was performed FINDINGS: There is good flow, compression and normal spectral waveforms in the left internal jugular, subclavia n, axillary, brachial, radial, ulnar, basilic veins . Thrombus is seen in the left cephalic vein in the upper arm.. IMPRESSION: 1. No evidence of DVT in either upper extremity. 2. Superficial vein thrombosis in the left cephalic vein.
[2020-04-14 12:35] VITALS: BMI 35.9
--- NOTE | 2020-04-14 17:03 | PRG ---
DATE OF SERVICE: 04/14/2020 I saw Mercedes Pate in the ICU this morning. Over the weekend, no significant changes have occurred. Among the electronically recorded vital signs, the highest temperature I see is 101.6 degrees Fahrenheit at 3 a.m. yesterday, 100.6 is recorded at 4 a.m. today. Blood pressures have been in the 100s to 120s. On examination, Ms. Pate has 20 mcg of propofol per hour running and yet with some waking, she does follow commands on the right side. Her left arm was swollen last week, but now there is a large bullous blister over the thenar eminence of the left hand, significant amount of fluid trapped within. This arm has not been mobile since the intracerebral hemorrhage. White blood cell count is 9.5. Sodium is 138. We will get an ultrasound of the left upper extremity and make sure she does not have an occlusive DVT. Therefore, order an ultrasound, we should check the legs as well. The family is going to decide on tracheostomy and gastrostomy sometime this week. I think Ms. Pate will make recovery from this to the point where she is communicative and can move the right side, but she will always have the left hemiparesis. Job ID: [id number]
[2020-04-14] MEDS ORDERED: Scopolamine 1.5 mg/72 hour Patch TOP SCH (21:15)
[2020-04-15] MEDS: Labetalol HCl 100 MG/20 ML VIAL SLOW IVP PRN (02:08)
[2020-04-15 02:09] VITALS: BP 143/60
[2020-04-15 04:39] LABS: #Eosinphils 0.4 thou/uL (0.0-0.7); #Lymphocytes 1.2 thou/uL (1.20-3.40); #Monocytes 0.7 thou/uL (0.11-0.59); #Neutrophils 9.5 thou/uL (1.40-6.50); %Basophils 0.1 % (0.0-1.0); %Eosinophils 3.1 % (0.0-10.0); %Lymphocytes 9.9 % (21.0-51.0); %Monocytes 6.2 % (0.0-10.0); %Neutrophils 80.8 % (42.0-75.0); Hemoglobin 10.5 g/dL (12.0-16.0); Mean Corpuscular HGB CONC 32.7 g/dL (32.0-36.0); Mean Corpuscular Volume 94.7 fL (78.0-98.0); Mean Platelet Volume 7.9 fL (7.4-10.4); Platelet Count 283 thou/uL (130-400); RBC Distribution Width 12.3 % (11.5-14.5); Red Blood Cell (RBC) Count 3.39 mill/uL (4.20-5.40); White Blood Cell (WBC) Count 11.8 thou/uL (4.8-10.8)
[2020-04-15 04:57] LABS: Anion Gap 16 mmol/L (10-20); BUN (Urea Nitrogen) 32 mg/dL (9.8-20.1); Calc. Creatinine Clearance 110 mL/min (70-130); Calcium 8.7 mg/dL (7.8-10.44); Carbon Dioxide 23 mmol/L (23-31); Chloride 106 mmol/L (98-107); Estimated GFR-MDRD 77; Glucose 169 mg/dL (83-110); Potassium 3.5 mmol/L (3.5-5.1); Sodium 141 mmol/L (136-145)
[2020-04-15] MEDS: Potassium Chloride 20 MEQ in Premix Bag 1 BAG IVPB SCH ×2 (06:20→09:42)
--- NOTE | 2020-04-15 06:44 | PRG ---
DATE OF SERVICE: 04/15/2020 I saw Mercedes Pate in her ICU room this morning. There have been ongoing discussions between the medical team, critical care, palliative care, and the family about the level of care to offer Ms. Pate. Decisions were made yesterday for an extubation today. Overnight, the highest temperature ICU recorded is 101.3 degrees Fahrenheit. Blood pressures have been between the 120s and 140s. On examination this morning, Ms. Pate hears us talking. She responds quickly. She moves her right hand, hold up her thumb and wiggles her toes to command. There is still swelling in the left arm. Ultrasound of the extremities revealed a cephalic vein clot on the left arm and a DVT in the left femoral vein. Sodium is 141 this morning and the white blood cell count 11.8. Ms. Pate will need treatment for deep venous thrombosis either anticoagulation or filter placement. I believe she is far enough out to start Lovenox and in a day or 2 to start Coumadin. Ms. Pate will be extubated today, she will be able to tolerate extubation for longer than the day, in fact, maybe a few days and up to a week, perhaps. The family should be prepared for protracted course. If they change her mind and want to continue aggressive care, please call us back. (15 min) Job ID: [id number] MTDD
[2020-04-15] MEDS ORDERED: diphenhydrAMINE 50 MG/ML VIAL IVP SCH (07:45)
[2020-04-15] MEDS ORDERED: methylPREDNISolone Sod Succ/PF 125 MG/2 ML VIAL IVP SCH (07:45)
--- NOTE | 2020-04-15 08:39 | PRG ---
DATE OF SERVICE: 04/15/2020 35 minutes of critical care time. SUBJECTIVE: I have heard that the patient's family may be doing a terminal extubation today. There is concern today the patient has a diffuse rash from labetalol she received last night. OBJECTIVE: VITAL SIGNS: Temperature 98.8, pulse 90, blood pressure 134/57, and O2 saturation 99%. HEENT: Remarkable for swollen tongue. NECK: No adenopathy or JVD. LUNGS: Clear. CARDIAC: S1, S2. Regular. ABDOMEN: Soft. EXTREMITIES: Diffuse papular rash. LABORATORY DATA: White blood cell count 11.8, hematocrit 32, and platelet count 283. Sodium 141, potassium 3.5, chloride 106, CO2 of 23, BUN 32, creatinine 0.7, and glucose 169. Doppler ultrasound demonstrated a left femoral DVT and left cephalic vein DVT. ASSESSMENT: 1. Intracranial hemorrhage. 2. Diffuse rash. 3. Acute respiratory failure, requiring mechanical ventilation. 4. Left-sided hemiparesis. 5. Underlying chronic obstructive pulmonary disease. 6. Deep venous thrombosis. PLAN: I do not think the patient will do well extubated, although does have a family, wants to proceed. There seems to be a little utility in anticoagulating the patient or performing IVC filter unless she shows improvement over the next couple of days. She has been cleared by Neurosurgery, to do anticoagulation, but again, I do not think she will last long extubated. I will go and give her a dose of steroids and Benadryl for the rash. Compassionate morphine has been written for if she has trouble with dyspnea post extubation. Job ID: [id number]
[2020-04-15] MEDS: Metoprolol Tartrate 50 MG TAB PER TUBE SCH (09:42)
[2020-04-15] MEDS: Pantoprazole 40 MG GRANULES PACKET PER TUBE SCH (09:42)
[2020-04-15] MEDS ORDERED: Atropine Sulfate 1% Ophth Soln 5 ml Bottle PO PRN ×2 (09:56→18:50)
[2020-04-15] MEDS ORDERED: Hyoscyamine Sulfate SL 0.125 mg Tablet SL PRN (09:57)
[2020-04-15] MEDS ORDERED: Lorazepam 2 MG/ML VIAL SLOW IVP PRN ×2 (09:58→18:51)
[2020-04-15] MEDS: Morphine 4 MG/ML VIAL SLOW IVP PRN ×9 (10:43→20:39)
--- NOTE | 2020-04-15 11:07 | PDOC.HOSPP ---
- Subjective Encounter Date: 04/15/20 Encounter Time: 11:06 Subjective: Ms. Pate was seen today in follow-up of respiratory failure and ICH. She has not had much change neurologically. Her family is at the bedside. They have decided on compassionate extubation. - Objective Vital Signs & Weight: Vital Signs (12 hours) Temp Pulse Resp BP Pulse Ox 04/15/20 11:00 76 24 H 96 04/15/20 08:00 30 H 04/15/20 07:09 98 04/15/20 06:00 27 H 04/15/20 04:00 98.8 F 27 H 04/15/20 02:13 96 143/60 H 04/15/20 02:08 91 143/60 H 04/15/20 02:00 25 H 04/15/20 00:06 86 122/57 L 04/15/20 00:00 99.3 F 28 H Weight Admit Weight 224 lb Weight 223 lb 5.252 oz Most Recent Monitor Data Heart Rate from ECG 98 NIBP 140/57 NIBP BP-Mean 84 Respiration from ECG 19 SpO2 94 I&O: 04/14/20 04/15/20 04/16/20 06:59 06:59 06:59 Intake Total 1433 1682 Output Total 1240 1560 Balance 193 122 Result Diagrams: 04/15/20 03:54 04/15/20 03:54 Hospitalist ROS - Medication Medications: Active Medications Generic Name Dose Route Start Last Admin Trade Name Freq PRN Reason Stop Dose Admin Acetaminophen 650 mg 04/13/20 03:00 04/14/20 20:52 Tylenol Elixir PO 650 mg Q6H PRN Administration Fever > 101 or Headache Albuterol/Ipratropium 3 ml 04/07/20 13:00 04/15/20 07:08 Duoneb NEB 3 ml [id number] ANUSHKA Administration Hydralazine HCl 5 mg 04/05/20 19:35 04/14/20 17:42 Apresoline SLOW IVP 5 mg Q4H PRN Administration SBP >140 Levetiracetam 500 mg/ Device 100 mls @ 200 mls/hr 04/05/20 21:00 04/15/20 09: 39 IVPB 100 mls BID ANUSHKA Administration Lorazepam 2 mg 04/05/20 22:26 04/15/20 10:43 Ativan SLOW IVP 05/05/20 22:26 2 mg Q1H PRN Administration Breakthrough agitation Metoprolol Tartrate 50 mg 04/07/20 21:00 04/15/20 09:42 Lopressor PER TUBE 50 mg BID ANUSHKA Administration Morphine Sulfate 4 mg 04/15/20 07:35 04/15/20 11:04 Morphine SLOW IVP 4 mg Q5MIN PRN Administration dyspnea Pantoprazole Sodium 40 mg 04/10/20 09:00 04/15/20 09:42 Protonix PER TUBE 40 mg DAILY ANUSHKA Administration Scopolamine 1.5 mg 04/14/20 21:15 04/14/20 21:10 Transderm Scop TOP 1.5 mg Q3D ANUSHKA Administration - Exam Eye: PERRL, anicteric sclera Heart: RRR, no murmur, no gallops, no rubs, normal peripheral pulses Respiratory: CTAB, no wheezes, no rales, no ronchi, normal chest expansion Gastrointestinal: soft, non-tender, non-distended, normal bowel sounds Extremities: 2+ LE edema Hosp A/P (1) Acute respiratory failure with hypoxia Code(s): J96.01 - ACUTE RESPIRATORY FAILURE WITH HYPOXIA Status: Acute (2) Intracerebral hemorrhage Code(s): I61.9 - NONTRAUMATIC INTRACEREBRAL HEMORRHAGE, UNSPECIFIED Status: Acute Qualifiers: Intracerebral hemorrhage etiology: nontraumatic Laterality: right (3) CKD (chronic kidney disease), stage III Code(s): N18.3 - CHRONIC KIDNEY DISEASE, STAGE 3 (MODERATE) Status: Chronic (4) Left leg DVT Code(s): I82.402 - ACUTE EMBOLISM AND THOMBOS UNSP DEEP VEINS OF L LOW EXTREM Status: Acute - Plan * Acute respiratory failure with hypoxemia- Continue support with mechanical ventilation * Family has decided on extubation * Medications for comfort care have been entered
--- NOTE | 2020-04-15 15:05 | PDOC.PALPN ---
Palliative Progress Note - Subjective Extubated, secondary to poor meaningful recovery related to respiratory failure and ICH. Transitioned to comfort care as family is acting on what they believe Mrs Pate would desire. - Objective Vital Signs: Vital Signs - Most Recent Temp Pulse Resp BP Pulse Ox 100.6 F H 76 24 H 143/60 H 96 04/15/20 07:00 04/15/20 11:00 04/15/20 11:00 04/15/20 02:13 04/15/20 11:00 - Physical Exam Constitutional: NAD, encephalitic HEENT: moist MMs, sclera anicteric Respiratory: diminished lung sound, labored respirations Cardiovascular: RRR, diminished peripheral pulses Gastrointestinal: soft, positive bowel sounds Deviation from normal: obese Genitourinary: ac catheter Musculoskeletal: edema present, diffuse muscle atrophy Neurology: hemiplegia Skin: bruising Deviation from normal: papular rash Deviation from normal: encephalopathic - Assessment (1) Palliative care encounter Code(s): Z51.5 - ENCOUNTER FOR PALLIATIVE CARE Current Visit: Yes Status: Acute (2) Acute metabolic encephalopathy Code(s): G93.41 - METABOLIC ENCEPHALOPATHY Current Visit: Yes Status: Acute (3) Acute respiratory failure with hypoxia Code(s): J96.01 - ACUTE RESPIRATORY FAILURE WITH HYPOXIA Current Visit: Yes Status: Acute (4) Intracerebral hemorrhage Code(s): I61.9 - NONTRAUMATIC INTRACEREBRAL HEMORRHAGE, UNSPECIFIED Current Visit: Yes Status: Acute Qualifiers: Intracerebral hemorrhage etiology: nontraumatic Laterality: right (5) NSTEMI (non-ST elevated myocardial infarction) Code(s): I21.4 - NON-ST ELEVATION (NSTEMI) MYOCARDIAL INFARCTION Current Visit : Yes Status: Acute (6) CKD (chronic kidney disease), stage III Code(s): N18.3 - CHRONIC KIDNEY DISEASE, STAGE 3 (MODERATE) Current Visit: Yes Status: Chronic - Plan Plan: Comfort medications Morphine, Ativan, scopolamine, levsin appear to be mitigating symptoms related to end of life care. Family at bedside, , two daughters and their husbands. Continue to relay life review of Ms Pate. Discussed possible transition to floor for continuation of comfort measures as well as consideration of including hospice care. Please also refer to Esvin Saucedo RNadmission discharge rn notes in note section [45] minutes spent on this encounter with >50% of the time in counseling and coordination of care. - ROS Non Response: due to endotracheal tube, due to mental status
[2020-04-15 15:31] VITALS: TEMP 99.9
[2020-04-15] MEDS ORDERED: Scopolamine 1.5 mg/72 hour Patch TOP PRN (18:48)
[2020-04-15] MEDS ORDERED: Ondansetron PF 4 MG/2 ML Vial IVP PRN (18:48)
[2020-04-15] MEDS ORDERED: Morphine 2 MG/ML VIAL SLOW IVP PRN (18:50)
[2020-04-15] MEDS ORDERED: Morphine 4 MG/ML VIAL SLOW IVP SCH (19:00)
[2020-04-15] MEDS ORDERED: Lorazepam 2 MG/ML VIAL SLOW IVP SCH (21:00)
--- NOTE | 2020-04-16 22:17 | DIS ---
DATE OF ADMISSION: 04/05/2020 DATE OF DISCHARGE: 04/15/2020 DISCHARGE DISPOSITION: Inpatient hospice. DISCHARGE DIAGNOSES: 1. Intracranial hemorrhage. 2. Acute hypoxic respiratory failure. 3. History of transient ischemic attack. 4. Hypothyroidism. 5. Diabetes mellitus, type 2. IMAGING DURING THE HOSPITAL STAY: The patient had an initial CT scan showing a large right hemispheric intracranial hematoma with surrounding vasogenic edema with a left midline shift. The patient had a CT scan of the C-spine, which was negative for fracture. She had an echocardiogram, which demonstrated an ejection fraction of 60% to 65% with evidence of diastolic dysfunction. She also had upper as well as lower extremity venous Doppler. The venous Doppler demonstrated left deep femoral vein thrombosis. CODE STATUS: DNAR. ALLERGIES: NO KNOWN DRUG ALLERGIES. HOSPITAL COURSE: Ms. Pate is a pleasant 74-year-old female, who was found down by family. Apparently, she fell between the bed and end table. She was brought to the emergency room, where CT scan of the brain demonstrated a large right hemispheric intracranial hemorrhage. She was admitted to the neurosurgery team. Due to the characteristics of the bleed with vasogenic edema being present, it was felt that the age of the hematoma was much older than what was initially thought in the ER, likely being 48 hours to 72 hours out and she must have been down for longer. For this reason, she was not felt to benefit from surgical intervention. She also required mechanical intubation due to respiratory failure. She remained intubated and was for several days. She did not regain any sizable improvement in her neurological function. For this reason, the family made the decision to compassionately extubate her. She was then transitioned to inpatient hospice and she is not expected to live more than a few days post extubation. She was transferred to inpatient hospice on 04/15/2020. Job ID: [id number]
== END 2020-04-15 18:36 | disposition hospice, inpatient (51) | DRG 64 ==
LOC: ERS 17:40 → CCU 20:24 → ONC 04-15 17:33
PROVIDERS: ADMIT Neurological Surgery; ATTEND Neurological Surgery
PROC: 0BH17EZ Insertion of Endotracheal Airway into Trachea, Via Natural or Artificial Opening (ICD-10-PCS; principal; 2020-04-05)
PROC: 5A1955Z Respiratory Ventilation, Greater than 96 Consecutive Hours (ICD-10-PCS; 2020-04-05)
DX: I61.5 Nontraumatic intracerebral hemorrhage, intraventricular (principal); G93.6 Cerebral edema; G93.5 Compression of brain; J96.01 Acute respiratory failure with hypoxia; G93.41 Metabolic encephalopathy; I21.4 Non-ST elevation (NSTEMI) myocardial infarction; G81.94 Hemiplegia, unspecified affecting left nondominant side; I82.622 Acute embolism and thrombosis of deep veins of left upper extremity; I82.412 Acute embolism and thrombosis of left femoral vein; Z20.828 Contact with and (suspected) exposure to other viral communicable diseases; Z66 Do not resuscitate; Z51.5 Encounter for palliative care; E03.9 Hypothyroidism, unspecified; I25.10 Atherosclerotic heart disease of native coronary artery without angina pectoris; E78.00 Pure hypercholesterolemia, unspecified; E11.51 Type 2 diabetes mellitus with diabetic peripheral angiopathy without gangrene; E11.22 Type 2 diabetes mellitus with diabetic chronic kidney disease; I12.9 Hypertensive chronic kidney disease with stage 1 through stage 4 chronic kidney disease, or unspecified chronic kidney disease; N18.3 Chronic kidney disease, stage 3 (moderate); F41.9 Anxiety disorder, unspecified; R50.9 Fever, unspecified; R21 Rash and other nonspecific skin eruption; J44.9 Chronic obstructive pulmonary disease, unspecified; Z87.891 Personal history of nicotine dependence; Z79.890 Hormone replacement therapy; Z79.84 Long term (current) use of oral hypoglycemic drugs; Z79.82 Long term (current) use of aspirin; Z79.899 Other long term (current) drug therapy; Z79.51 Long term (current) use of inhaled steroids
CPT/HCPCS: 31500; 36415; 36600; 51702; 70450; 71045; 71260; 72125; 74177; 80048; 80053; 81003; 81015; 82553; 82805; 83735; 84443; 84484; 85007; 85025; 85027; 85610; 85730; 87040; 87086; 87635; 93005; 93306; 93970; 94002; 94003; 94640; 96365; 96366; 96367; 96376; 99292; C9113; J0360; J1100; J1200; J1953; J2060; J2150; J2270; J2543; J2704; J2930; J3010; J3370; J3480; J3490; J7050; J7620; Q9967; U0003

== ENCOUNTER 2020-04-15 18:36 | Inpatient (IN) | payer BC, MEDICARE, OTHER ==
[2020-04-15] MEDS ORDERED: Morphine 4 MG/ML VIAL ONE ×2 (20:35→21:24)
[2020-04-15 21:02] VITALS: BMI 35.4
[2020-04-15] MEDS ORDERED: Lorazepam 2 MG/ML VIAL ONE (21:17)
[2020-04-15] MEDS ORDERED: Ondansetron PF 4 MG/2 ML Vial IVP PRN (21:19)
[2020-04-15] MEDS ORDERED: Scopolamine 1.5 mg/72 hour Patch TOP PRN (21:19)
[2020-04-15] MEDS ORDERED: Lorazepam 2 MG/ML VIAL SLOW IVP PRN (21:24)
[2020-04-15] MEDS: Lorazepam 2 MG/ML VIAL SLOW IVP SCH (21:55)
[2020-04-15] MEDS: Morphine 4 MG/ML VIAL SLOW IVP SCH ×2 (21:57→23:04)
[2020-04-15] MEDS: Morphine 2 MG/ML VIAL SLOW IVP PRN ×2 (22:31→23:38)
[2020-04-15] MEDS: Atropine Sulfate 1% Ophth Soln 5 ml Bottle PO PRN (23:46)
[2020-04-16] MEDS: Morphine 4 MG/ML VIAL SLOW IVP SCH ×23 (00:21→23:31)
[2020-04-16] MEDS: Lorazepam 2 MG/ML VIAL SLOW IVP SCH ×6 (01:28→21:42)
[2020-04-16] MEDS: Atropine Sulfate 1% Ophth Soln 5 ml Bottle PO PRN ×9 (02:03→23:32)
[2020-04-16] MEDS ORDERED: Lorazepam 2 MG/ML VIAL ONE (05:30)
[2020-04-16 19:39] VITALS: BP 99/50; TEMP 101.4
[2020-04-17] MEDS: Morphine 4 MG/ML VIAL SLOW IVP SCH ×4 (01:10→03:42)
[2020-04-17] MEDS: Atropine Sulfate 1% Ophth Soln 5 ml Bottle PO PRN ×2 (01:11→03:42)
[2020-04-17] MEDS: Lorazepam 2 MG/ML VIAL SLOW IVP SCH (01:11)
--- NOTE | 2020-04-17 15:25 | DIS ---
DATE OF ADMISSION: 04/15/2020 DATE OF DISCHARGE: 04/17/2020 Admit date to the inpatient GIP service is 04/15. Date of , 04/18. ADMIT DIAGNOSIS: Intracranial bleed with hematoma with left shift of brain midline. DISCHARGE DIAGNOSIS: Intracranial bleed with hematoma with left shift brain midline. HOSPITAL COURSE: The patient was admitted initially to the ICU with respiratory failure; found down at home, no fractures located on evaluation and imaging. Large bleed was found in the brain with a large hematoma causing a left shift of midline. Neurosurgery was consulted after evaluation of the imaging and the patient's status. Assessment was that the amount of time the patient had been down and by the looks of old blood, did not appear to be surgically correctable. The patient was kept comfortable and intubated, and then after at least a week, the patient was then extubated in anticipation of passing quickly. She remained in the hospital and lied for several more days, was transitioned over to the GIP Service, and after being on the service for a few days, she was kept comfortable and then passed peacefully. Family was there at the time of . Hospice personnel also came in and helped in transition of the patient to the home, also helping the family with any questions and concerns. Job ID: [id number]
--- NOTE | 2020-05-20 21:46 | HP ---
This is an admission note to the Hospice GIP Service. ADMITTING DIAGNOSES: Intracranial hemorrhage, acute hypoxic respiratory failure. HOSPITAL COURSE: The patient was brought to the emergency room after being found down. On evaluation in the emergency room, she was found to have a large right-sided hemispheric intracranial hematoma with surrounding edema and left midline shift. Neurosurgery was consulted. She was a DNR. Family agreed to just keep her comfortable from recommendations of poor prognosis. So, they tried to see whether she would be able to wake up and go through that, so they extubated her. She was initially in the ICU intubated, and after 10 days of that, they extubated her and decided to transition her over to inpatient hospice. Her other past medical history includes diabetes type 2 and hypothyroidism. She has no known drug allergies. Otherwise, history is difficult to obtain due to the obtunded nature of the patient. Vital signs showed BPs in the 100s to 120s with most systolic, O2 sats in the 80s to 90s, sometimes requiring supplemental oxygen, still breathing on her own for the most part at this point. So, the plan is to have a GIP Service and to keep comfortable with the expectation due to the nature of the hematoma in the brain that she will pass quickly. Job ID: [id number]
== END 2020-04-17 04:17 | disposition expired | DRG 951 ==
LOC: ONC 18:36 → UNDOADMIN 20:32
PROVIDERS: ADMIT Family Medicine; ATTEND Family Medicine
DX: Z51.5 Encounter for palliative care (principal); S06.1X9A Traumatic cerebral edema with loss of consciousness of unspecified duration, initial encounter; S06.349A Traumatic hemorrhage of right cerebrum with loss of consciousness of unspecified duration, initial encounter; J96.01 Acute respiratory failure with hypoxia; R40.2213 Coma scale, best verbal response, none, at hospital admission; Z66 Do not resuscitate; W19.XXXA Unspecified fall, initial encounter; I10 Essential (primary) hypertension; E11.9 Type 2 diabetes mellitus without complications; R40.2143 Coma scale, eyes open, spontaneous, at hospital admission; E03.9 Hypothyroidism, unspecified; R40.2363 Coma scale, best motor response, obeys commands, at hospital admission; Y92.003 Bedroom of unspecified non-institutional (private) residence as the place of occurrence of the external cause; Z87.891 Personal history of nicotine dependence; Z79.82 Long term (current) use of aspirin; Z79.84 Long term (current) use of oral hypoglycemic drugs
CPT/HCPCS: J2060; J2270